=== PATIENT | male | born 1955 | race Caucasian/White ===

== ENCOUNTER → 2019-08-13 12:01 | Outpatient (CLI) | payer MEDICARE, OTHER, SELFPAY ==
[2019-08-13 12:50] LABS: Hematocrit 41.8 % (41-53); Hemoglobin 14.3 g/dL (13.5-17.5); Mean Corpuscular HGB Conc 34.2 % (30-36); Mean Corpuscular Volume 93.4 fL (80-100); Platelet Count 172 X10^3/uL (150-400); Red Blood Cell Count 4.47 X10^6/uL (4.5-5.9); Red Cell Distribution Width 12.8 % (11.6-14.8); White Blood Cell Count 6.4 X10^3/uL (4.5-11.0)
[2019-08-13 13:08] LABS: Alanine Aminotransferase 40 IU/L (21-72); Albumin 4.4 g/dL (3.5-5.0); Albumin Globulin Ratio 1.4 (1.0-2.8); Alkaline Phosphatase 81 U/L (38-126); Aspartate Aminotransferase 31 IU/L (17-59); BUN Creatinine Ratio 22.2 (6-22); Bilirubin Total 0.4 mg/dL (0.2-1.3); Blood Urea Nitrogen 20 mg/dL (9-20); Calcium 9.3 mg/dL (8.4-10.2); Carbon Dioxide 29 mmol/L (22-32); Chloride 103 mmol/L (98-107); Cholesterol 196 mg/dL (140-199); Estimated Glomerular Filt Rate > 60.0 mL/min (>60); Globulin 3.2 g/dL (1.7-4.1); Glucose 107 mg/dL (80-110); HDL Cholesterol 42 mg/dL (40-60); HEMOLYSIS < 15 (0-50); LDL Cholesterol Calculated 126 mg/dL (<100); Potassium 4.7 mmol/L (3.4-5.1); Sodium 141 mmol/L (137-145); Total Protein 7.6 g/dL (6.3-8.2); Triglycerides 140 mg/dL (35-150)
[2019-08-13 13:34] LABS: Prostate Specific Antigen 1.48 ng/mL (0.10-4.00)
== END ==
PROVIDERS: PCP Nurse Practitioner Family; Visit Provider Nurse Practitioner Family
DX: Z00.00 Encounter for general adult medical examination without abnormal findings (principal); Z12.5 Encounter for screening for malignant neoplasm of prostate; Z13.6 Encounter for screening for cardiovascular disorders
CPT/HCPCS: 36415; 80053; 80061; 84153; 85027; G0103

== ENCOUNTER → 2019-08-23 10:28 | Outpatient (CLI) | payer MEDICARE, OTHER, SELFPAY ==
[2019-08-23 11:05] LABS: Uric Acid 8.4 mg/dL (3.5-8.5)
== END ==
PROVIDERS: PCP Nurse Practitioner Family; Visit Provider Nurse Practitioner Family
DX: M62.81 Muscle weakness (generalized) (principal); R53.83 Other fatigue; M10.9 Gout, unspecified
CPT/HCPCS: 36415; 84403; 84550

== ENCOUNTER → 2019-12-06 09:38 | Outpatient (CLI) | payer MEDICARE, OTHER, SELFPAY ==
[2019-12-06 10:37] LABS: Cholesterol 157 mg/dL (140-199); HDL Cholesterol 36 mg/dL (40-60); LDL Cholesterol Calculated 91 mg/dL (<100); Triglycerides 148 mg/dL (35-150)
== END ==
PROVIDERS: PCP Nurse Practitioner Family; Visit Provider Nurse Practitioner Family
DX: E78.2 Mixed hyperlipidemia (principal)
CPT/HCPCS: 36415; 80061

== ENCOUNTER → 2020-09-19 18:09 | Outpatient (CLI) | payer MEDICARE, OTHER, SELFPAY ==
--- NOTE | 2020-09-19 18:10 | DI.MRI.S_ITS ---
PROCEDURE: MR SHOULDER RT WO CON INDICATIONS: UNSPECIFIED ROTATOR CUFF OR RUPTURE TECHNIQUE: Noncontrast oblique coronal T2 fast spin echo with fat saturation, oblique sagittal T1 spin echo and T2 fast spin echo with fat saturation, axial T1 spin echo and T2 fast spin echo with fat saturation through the shoulder. COMPARISON: None. FINDINGS: Image quality: Excellent. Rotator cuff: Full-thickness tear of the supraspinatus tendon is seen measuring 1.5 cm in the AP dimension as seen on sagittal image 8/10. This measures 1.1 cm on coronal image 11/8. Infraspinatus tendinopathy and thickening with interstitial tearing. There is also partial-thickness articular sided tear. The teres minor tendon appears intact. Subscapularis tendinopathy with partial thickness articular and bursal sided tear although no definite full-thickness defect is seen. Atrophy of the subscapularis muscle is present. There is fatty infiltration of the supraspinatus and infraspinatus muscles. Bones and bursae: No bone marrow contusions or fractures. Severe hypertrophic acromioclavicular joint degeneration. Glenohumeral joint degeneration also noted. Acromion demonstrates conventional anatomy, without an os acromiale. Capsule and soft tissues: Labrum: Fraying of the superior labrum which is likely chronic/age related. Posterior labral tear however is noted, with chronic appearance and associated glenoid rim sclerosis and spurring. Long head of the biceps tendon is not well seen and could be ruptured. The rotator interval appears normal, without fibrosis. Coracohumeral ligament intact. IMPRESSION: Full-thickness tear of the supraspinatus tendon as detailed above. Subscapularis tendinopathy with partial thickness articular and bursal sided tear. Atrophy of the subscapularis muscle. Chronic posterosuperior labral tear. Infraspinatus tendinopathy with interstitial tearing partial-thickness articular sided tear. Rupture of the long head biceps tendon, although this could alternatively be due to postsurgical effects if there is appropriate operative history. Recommend clinical correlation Degenerative joint disease. Dictated by: Hunter Lopez M.D. on 09/22/2020 at 9:39 Approved by: Hunter Lopez M.D. on 09/22/2020 at 10:03
== END ==
PROVIDERS: PCP Nurse Practitioner Family; Referring Provider Orthopaedic Surgery; Visit Provider Orthopaedic Surgery
DX: M75.121 Complete rotator cuff tear or rupture of right shoulder, not specified as traumatic (principal); M19.011 Primary osteoarthritis, right shoulder; S43.491A Other sprain of right shoulder joint, initial encounter; S46.111A Strain of muscle, fascia and tendon of long head of biceps, right arm, initial encounter
CPT/HCPCS: 73221

== ENCOUNTER → 2021-02-16 09:12 | Outpatient (CLI) | payer MEDICARE, OTHER, SELFPAY ==
[2021-02-16 09:35] LABS: Add Manual Diff / Slide Review NO; Basophils Absolute Auto 100 /uL (0-100); Basophils Percent Auto 1.4 % (0-2); Eosinophils Absolute Auto 600 /uL (0-450); Eosinophils Percent Auto 8.9 % (2-4); Hematocrit 41.6 % (41-53); Hemoglobin 13.8 g/dL (13.5-17.5); Lymphocytes Absolute Auto 2300 /uL (1100-4500); Lymphocytes Percent Auto 34.7 % (25-40); Mean Corpuscular HGB Conc 33.2 % (30-36); Mean Corpuscular Hemoglobin 30.3 PG (26-34); Mean Corpuscular Volume 91.4 fL (80-100); Monocytes Absolute Auto 700 /uL (0-900); Monocytes Percent Auto 10.2 % (3-14); Neutrophils Absolute Auto 2900 /uL (1500-7000); Neutrophils Percent Auto 44.8 % (50-75); Platelet Count 186 X10^3/uL (150-400); Red Blood Cell Count 4.55 X10^6/uL (4.5-5.9); Red Cell Distribution Width 13.5 % (11.6-14.8); White Blood Cell Count 6.6 X10^3/uL (4.5-11.0)
[2021-02-16 10:34] LABS: Alanine Aminotransferase 46 IU/L (<50); Albumin 4.2 g/dL (3.5-5.0); Albumin Globulin Ratio 1.3 (1.0-2.8); Alkaline Phosphatase 91 U/L (38-126); Aspartate Aminotransferase 36 IU/L (17-59); BUN Creatinine Ratio 20.5 (6-22); Bilirubin Total 0.2 mg/dL (0.2-1.3); Blood Urea Nitrogen 18 mg/dL (9-20); Calcium 9.6 mg/dL (8.4-10.2); Carbon Dioxide 28 mmol/L (22-32); Chloride 105 mmol/L (98-107); Cholesterol 183 mg/dL (140-199); Estimated Glomerular Filt Rate > 60.0 mL/min (>60); Globulin 3.3 g/dL (1.7-4.1); Glucose 115 mg/dL (80-110); HDL Cholesterol 40 mg/dL (40-60); HEMOLYSIS < 15 (0-50); LDL Cholesterol Calculated 113 mg/dL (<100); Potassium 4.3 mmol/L (3.4-5.1); Sodium 140 mmol/L (137-145); Total Protein 7.5 g/dL (6.3-8.2); Triglycerides 151 mg/dL (35-150)
== END ==
PROVIDERS: PCP Nurse Practitioner Family; Referring Provider Nurse Practitioner Family; Visit Provider Nurse Practitioner Family
DX: E78.2 Mixed hyperlipidemia (principal); Z00.00 Encounter for general adult medical examination without abnormal findings; J45.909 Unspecified asthma, uncomplicated
CPT/HCPCS: 36415; 80053; 80061; 85025

== ENCOUNTER → 2021-02-18 11:22 | Outpatient (CLI) | payer MEDICARE, OTHER, SELFPAY ==
[2021-02-18 14:21] LABS: Hemoglobin A1C% w Est Avg Glu 6.1 % (4.0-6.0)
== END ==
PROVIDERS: PCP Nurse Practitioner Family; Visit Provider Nurse Practitioner Family
DX: R73.9 Hyperglycemia, unspecified (principal)
CPT/HCPCS: 83036

== ENCOUNTER → 2021-03-10 09:09 | Outpatient (CLI) | payer MEDICARE, OTHER, SELFPAY ==
--- NOTE | 2021-03-10 09:11 | DI.US.S_ITS ---
PROCEDURE: US ABD AORTA ANEURYSM SCREEN INDICATIONS: SCREEN. Smoking history. TECHNIQUE: Real time scanning was performed of the aorta and iliac arteries, with image documentation. COMPARISON: [facility], , ABDOMEN COMPLETE, 10/26/2010, 13:08. FINDINGS: Aorta: Proximal aorta is not seen. Mid-aorta measures 2 cm. Distal aortic diameter is 1.7 cm. Iliac arteries: Right common iliac artery measures 1.2 cm. Left common iliac artery measures 1.2 cm. This study is limited by body habitus. IMPRESSION: Negative for aneurysm. Dictated by: Josh Arriola M.D. on 03/10/2021 at 8:57 Approved by: Josh Arriola M.D. on 03/10/2021 at 8:58
== END ==
PROVIDERS: PCP Nurse Practitioner Family; Referring Provider Nurse Practitioner Family; Visit Provider Nurse Practitioner Family
DX: Z13.6 Encounter for screening for cardiovascular disorders (principal); Z87.891 Personal history of nicotine dependence
CPT/HCPCS: 76706

== ENCOUNTER → 2021-10-10 15:48 | Outpatient (CLI) | payer MEDICARE, OTHER, SELFPAY ==
--- NOTE | 2021-10-10 15:53 | DI.RAD.S_ITS ---
PROCEDURE: XR FOOT RT MIN 3V INDICATIONS: foot and ankle pain TECHNIQUE: 3 views of the foot were acquired. COMPARISON: [facility], CR, XR ANKLE RT MIN 3V, 10/10/2021, 15:49. FINDINGS: Bones: No displaced fracture identified. The 2nd tarsometatarsal joint appears mildly incongruent although evaluation is limited by projection. There is mild cortical thickening within the 2nd through 4th metatarsals which may reflect a possible stress reaction. Mild degeneration is demonstrated at the 1st tarsometatarsal and metatarsophalangeal joints. There is also mild degeneration of the interphalangeal joints. Soft tissues: No suspicious soft tissue calcifications. IMPRESSION: 1. Mildly incongruent appearance of the 2nd tarsometatarsal joint. Although the findings may be artifactual due to the projection, a Lisfranc fracture/dislocation cannot be excluded. Recommend correlation clinically and if indicated further evaluation may be obtained with CT. 2. Mild degenerative changes in the forefoot as described. 3. Mild cortical thickening within the 2nd through 4th metatarsals may reflect stress reactions. Recommend correlation with clinical history. Dictated by: Kaveh Adrian M.D. on 10/10/2021 at 15:45 Approved by: Kaveh Adrian M.D. on 10/10/2021 at 15:50
--- NOTE | 2021-10-10 15:53 | DI.RAD.S_ITS ---
PROCEDURE: XR ANKLE RT MIN 3V INDICATIONS: foot and ankle pain TECHNIQUE: 3 views of the ankle were acquired. COMPARISON: [facility], CR, XR FOOT RT MIN 3V, 10/10/2021, 15:49. FINDINGS: Bones: No fractures or dislocations. Ankle mortise is normally aligned. No suspicious bony lesions. Soft tissues: No tibiotalar joint effusion. Achilles tendon appears normal. IMPRESSION: 1. No fracture or dislocation in the right ankle. Dictated by: Kaveh Adrian M.D. on 10/10/2021 at 15:51 Approved by: Kaveh Adrian M.D. on 10/10/2021 at 15:52
== END ==
PROVIDERS: PCP Nurse Practitioner Family; Referring Provider Nurse Practitioner Family; Visit Provider Nurse Practitioner Family
DX: M25.571 Pain in right ankle and joints of right foot (principal); M79.671 Pain in right foot
CPT/HCPCS: 73610; 73630

== ENCOUNTER 2022-09-13 12:38 | Emergency (ER) | payer MEDICARE, OTHER, SELFPAY ==
[2022-09-13] VITALS (49 sets, daily range): BP systolic 123–174; BP diastolic 52–85; PULSE 62–78; RESP 4–27; TEMP 36.7; O2SAT 94–99; BMI 38.0
--- NOTE | 2022-09-13 12:47 | DI.RAD.S_ITS ---
PROCEDURE: XR CHEST 1V INDICATIONS: chest pain TECHNIQUE: One view of the chest was acquired. COMPARISON: [facility], , CHEST 2 VIEW, 10/25/2011, 17:23. FINDINGS: Surgical changes and devices: None. Lungs and pleura: Lungs are clear. No pleural effusions or pneumothorax. Mediastinum: Mediastinal contours appear normal. Heart size is normal. Bones and chest wall: No suspicious bony lesions. Overlying soft tissues appear unremarkable. IMPRESSION: No acute process. Dictated by: Emelia Corral M.D. on 09/13/2022 at 13:23 Approved by: Emelia Corral M.D. on 09/13/2022 at 13:23
--- NOTE | 2022-09-13 12:57 | ED_ITS ---
HPI - General Adult <Abner Brunson DO - Last Filed: 09/15/22 19:19> General Chief complaint: Chest Pain Stated complaint: chest pain t- getting worse Time Seen by Provider: 09/13/22 12:45 Source: patient Mode of arrival: Ambulatory Limitations: no limitations History of Present Illness HPI narrative: 67-year-old male who is here for evaluation of left-sided chest discomfort that he stated occurred earlier today. He has had discomfort like this in the past but has been off and on and never lasted very long. Today you returned while he was working on getting a boat on a trailer. He had some shortness of breath with it. Not worse with palpation or movement. No nausea vomiting. Described it as a pain/pressure like sensation. He is now asymptomatic. Did not tried anything for it. Has never had any risk stratification of his heart. Has been told that he is ?prediabetic? is not on any blood pressure medicines. Related Data Home Medications Medication Instructions Recorded Confirmed montelukast 10 mg tablet 10 mg PO DAILY 08/09/19 09/13/22 (Singulair) Allergies Allergy/AdvReac Type Severity Reaction Status Date / Time pravastatin AdvReac Intermediate myalgia Verified 09/15/22 15:03 Review of Systems <Abner Brunson DO - Last Filed: 09/15/22 19:19> Constitutional Constitutional: Reports system reviewed and no additional complaints, except as documented Cardiovascular Cardiovascular: Reports system reviewed and no additional complaints, except as documented Respiratory Respiratory: Reports system reviewed and no additional complaints, except as documented Gastrointestinal Gastrointestinal: Reports system reviewed and no additional complaints, except as documented Musculoskeletal Musculoskeletal: Reports system reviewed and no additional complaints, except as documented Integumentary/Breasts Skin/Breast: Reports system reviewed and no additional complaints, except as documented Neurologic Neurologic: Reports system reviewed and no additional complaints, except as documented Hematologic/Lymphatic On Anticoagulants: No Patient History <Abner Brunson DO - Last Filed: 09/15/22 19:19> Medical History Asthma (~2011) Former smoker Gout (~1979) Mixed hyperlipidemia (08/2019) Prediabetes (02/2021) Surgical History (Updated 08/20/19 @ 21:04 by Celia Angel) Anesthesia History of sinus surgery (~11/22/13) Family History (Updated 08/20/19 @ 21:05 by Celia Angel) Father History of heart disease Mother Cancer Social History Smoking Status: Former smoker (Quit ) Tobacco: How many years used: 20 second hand exposure: No alcohol intake: current (1-2 drinks a week) substance use type: does not use Smoking Status: Former smoker (Quit ) Exam <DO Nohemi Farah Last Filed: 09/15/22 19:19> Initial Vital Signs Initial Vital Signs: Vital Signs Temperature 98.0 F 09/13/22 12:45 Pulse Rate 78 09/13/22 12:45 Respiratory Rate 18 09/13/22 12:45 Blood Pressure 173/81 H 09/13/22 12:45 Pulse Oximetry 99 09/13/22 12:45 Oxygen Delivery Method 09/13/22 12:45 Const General: cooperative and comfortable HENMT Head: normal to inspection and normocephalic Chest Chest: normal inspection of the chest Resp Effort & Inspection: normal respiratory effort Auscultation: clear to auscultation bilaterally Cardio Rate: regular rate Rhythm: regular rhythm GI Inspection: normal to inspection Skin General: no rashes or lesions noted Neuro General: patient alert, patient awake and moves all extremities Extrem General: normal to inspection Psych Appearance: grossly normal <DO Nohemi Armenta Last Filed: 09/16/22 02:39> Initial Vital Signs Initial Vital Signs: Vital Signs Temperature 98.0 F 09/13/22 12:45 Pulse Rate 78 09/13/22 12:45 Respiratory Rate 18 09/13/22 12:45 Blood Pressure 173/81 H 09/13/22 12:45 Pulse Oximetry 99 09/13/22 12:45 Oxygen Delivery Method 09/13/22 12:45 Scores <DO Nohemi Farah Last Filed: 09/15/22 19:19> HEART Score Heart Score history: Slightly Suspicious Heart Score EKG: Normal Heart Score Age: > or = 65 years old Heart Score risk factors: 1-2 risk factors Heart Score troponin: < or = to normal limit Heart Score Total: 3 <DO Nohemi Armenta Last Filed: 09/16/22 02:39> HEART Score Heart Score Total: 3 Course <Abner Brunson DO - Last Filed: 09/15/22 19:19> Orders Ordered: Discontinued Medications Acetaminophen (Acetaminophen 325 Mg Tablet) 650 mg PO NOW ONE Stop: 09/15/22 17:29 Last Admin: 09/15/22 18:03 Dose: 650 mg Documented By: QUINTEN Acetaminophen (Acetaminophen 325 Mg Tablet) 650 mg PO NOW ONE Stop: 09/15/22 23:02 Last Admin: 09/15/22 23:04 Dose: 650 mg Documented By: ISABELA Aspirin (Aspirin 81 Mg Chew Tab) 324 mg PO NOW ONE Stop: 09/13/22 16:43 Last Admin: 09/13/22 17:17 Dose: 324 mg Documented By: SANTO Aspirin (Aspirin 81 Mg Chew Tab) 324 mg PO DAILY [facility] Last Admin: 09/15/22 08:40 Dose: 324 mg Documented By: Admin: 09/14/22 08:53 Dose: 324 mg Documented By: QUINTEN Atorvastatin Calcium (Atorvastatin 20 Mg Tablet) 80 mg PO DAILY [facility] Last Admin: 09/15/22 08:55 Dose: Not Given Documented By: Admin: 09/14/22 08:54 Dose: 80 mg Documented By: QUINTEN Heparin Sodium (Porcine) (Heparin 5,000 Unit/Ml Vial) 5,000 unit IV NOW ONE Stop: 09/13/22 16:43 Last Admin: 09/13/22 17:22 Dose: 5,000 unit Documented By: SANTO Heparin Sodium (Porcine) (Heparin 5,000 Unit/Ml Vial) 3,000 unit IV NOW ONE Stop: 09/14/22 00:07 Last Admin: 09/14/22 00:09 Dose: 3,000 unit Documented By: QUINTEN(2) Heparin Sodium/Dextrose (Heparin Drip) 25,000 unit in 500 mls @ 20 mls/hr IV CONT [facility]; Protocol Last Admin: 09/15/22 12:46 Dose: 1,250 units/hr, 25 mls/hr Documented By: Titration: 09/15/22 12:32 Dose: 1,250 units/hr, 25 mls/hr Documented By: Titration: 09/14/22 18:54 Dose: 1,250 units/hr, 25 mls/hr Documented By: Admin: 09/14/22 16:26 Dose: 1,200 units/hr, 24 mls/hr Documented By: Titration: 09/14/22 12:00 Dose: 1,200 units/hr, 24 mls/hr Documented By: Titration: 09/14/22 07:03 Dose: 1,150 units/hr, 23 mls/hr Documented By: QUINTEN(2) Titration: 09/14/22 00:10 Dose: 1,100 units/hr, 22 mls/hr Documented By: QUINTEN(2) Admin: 09/13/22 17:19 Dose: 1,000 units/hr, 20 mls/hr Documented By: SANTO Metoprolol Succinate (Metoprolol Er 25 Mg Tablet) 25 mg PO NOW ONE Stop: 09/13/22 20:40 Last Admin: 09/13/22 21:33 Dose: 25 mg Documented By: QUINTEN(2) Metoprolol Succinate (Metoprolol Er 25 Mg Tablet) 25 mg PO BID [facility] Last Admin: 09/15/22 11:08 Dose: Not Given Documented By: MARI Metoprolol Tartrate (Metoprolol Ir 25 Mg Tablet) 25 mg PO BID [facility] Last Admin: 09/15/22 20:48 Dose: 25 mg Documented By: Admin: 09/15/22 10:41 Dose: 25 mg Documented By: QUINTEN Vital Signs Vital signs: Vital Signs - 8 hr 09/15/22 18:40 09/15/22 18:40 09/15/22 19:00 Pulse Rate 81 81 Blood Pressure 134/68 Pulse Oximetry 96 09/15/22 19:30 09/15/22 20:00 09/15/22 20:09 Pulse Rate 88 88 82 Blood Pressure Pulse Oximetry 95 09/15/22 20:09 09/15/22 20:30 09/15/22 21:02 Pulse Rate 81 103 H Blood Pressure 120/62 Pulse Oximetry 09/15/22 21:30 09/15/22 22:00 09/15/22 22:30 Pulse Rate 133 H 83 75 Blood Pressure Pulse Oximetry <Ellen Pittman DO - Last Filed: 09/16/22 02:39> Orders Ordered: Discontinued Medications Acetaminophen (Acetaminophen 325 Mg Tablet) 650 mg PO NOW ONE Stop: 09/15/22 17:29 Last Admin: 09/15/22 18:03 Dose: 650 mg Documented By: QUINTEN Acetaminophen (Acetaminophen 325 Mg Tablet) 650 mg PO NOW ONE Stop: 09/15/22 23:02 Last Admin: 09/15/22 23:04 Dose: 650 mg Documented By: ISABELA Aspirin (Aspirin 81 Mg Chew Tab) 324 mg PO NOW ONE Stop: 09/13/22 16:43 Last Admin: 09/13/22 17:17 Dose: 324 mg Documented By: SANTO Aspirin (Aspirin 81 Mg Chew Tab) 324 mg PO DAILY [facility] Last Admin: 09/15/22 08:40 Dose: 324 mg Documented By: Admin: 09/14/22 08:53 Dose: 324 mg Documented By: QUINTEN Atorvastatin Calcium (Atorvastatin 20 Mg Tablet) 80 mg PO DAILY [facility] Last Admin: 09/15/22 08:55 Dose: Not Given Documented By: Admin: 09/14/22 08:54 Dose: 80 mg Documented By: QUINTEN Heparin Sodium (Porcine) (Heparin 5,000 Unit/Ml Vial) 5,000 unit IV NOW ONE Stop: 09/13/22 16:43 Last Admin: 09/13/22 17:22 Dose: 5,000 unit Documented By: SANTO Heparin Sodium (Porcine) (Heparin 5,000 Unit/Ml Vial) 3,000 unit IV NOW ONE Stop: 09/14/22 00:07 Last Admin: 09/14/22 00:09 Dose: 3,000 unit Documented By: RLS(2) Heparin Sodium/Dextrose (Heparin Drip) 25,000 unit in 500 mls @ 20 mls/hr IV CONT [facility]; Protocol Last Admin: 09/15/22 12:46 Dose: 1,250 units/hr, 25 mls/hr Documented By: Titration: 09/15/22 12:32 Dose: 1,250 units/hr, 25 mls/hr Documented By: Titration: 09/14/22 18:54 Dose: 1,250 units/hr, 25 mls/hr Documented By: Admin: 09/14/22 16:26 Dose: 1,200 units/hr, 24 mls/hr Documented By: Titration: 09/14/22 12:00 Dose: 1,200 units/hr, 24 mls/hr Documented By: Titration: 09/14/22 07:03 Dose: 1,150 units/hr, 23 mls/hr Documented By: RLS(2) Titration: 09/14/22 00:10 Dose: 1,100 units/hr, 22 mls/hr Documented By: RLS(2) Admin: 09/13/22 17:19 Dose: 1,000 units/hr, 20 mls/hr Documented By: SANTO Metoprolol Succinate (Metoprolol Er 25 Mg Tablet) 25 mg PO NOW ONE Stop: 09/13/22 20:40 Last Admin: 09/13/22 21:33 Dose: 25 mg Documented By: QUINTEN(2) Metoprolol Succinate (Metoprolol Er 25 Mg Tablet) 25 mg PO BID [facility] Last Admin: 09/15/22 11:08 Dose: Not Given Documented By: MARI Metoprolol Tartrate (Metoprolol Ir 25 Mg Tablet) 25 mg PO BID [facility] Last Admin: 09/15/22 20:48 Dose: 25 mg Documented By: Admin: 09/15/22 10:41 Dose: 25 mg Documented By: QUINTEN Vital Signs Vital signs: Vital Signs - 8 hr 09/15/22 18:40 09/15/22 18:40 09/15/22 19:00 Pulse Rate 81 81 Blood Pressure 134/68 Pulse Oximetry 96 09/15/22 19:30 09/15/22 20:00 09/15/22 20:09 Pulse Rate 88 88 82 Blood Pressure Pulse Oximetry 95 09/15/22 20:09 09/15/22 20:30 09/15/22 21:02 Pulse Rate 81 103 H Blood Pressure 120/62 Pulse Oximetry 09/15/22 21:30 09/15/22 22:00 09/15/22 22:30 Pulse Rate 133 H 83 75 Blood Pressure Pulse Oximetry Medical Decision Making <Abner Brunson DO - Last Filed: 09/15/22 19:19> Lab Data Lab results reviewed: Yes I reviewed the patient's lab results. Result diagrams: 09/15/22 08:27 09/15/22 08:27 Labs: Lab Results 09/13/22 09/13/22 09/13/22 Range/Units 12:55 12:55 12:55 WBC 5.5 (4.5-11.0) X10^3/uL RBC 4.32 L (4.5-5.9) X10^6/uL Hgb 13.2 L (13.5-17.5) g/dL Hct 39.1 L (41-53) % MCV 90.5 (80-100) fL MCH 30.5 (26-34) PG MCHC 33.7 (30-36) % RDW 13.8 (11.6-14.8) % Plt Count 176 (150-400) X10^3/uL Neut % (Auto) 46.7 L (50-75) % Lymph % (Auto) 38.2 (25-40) % Leake % (Auto) 9.3 (3-14) % Eos % (Auto) 4.7 H (2-4) % Baso % (Auto) 1.1 (0-2) % Neut # (Auto) 2600 (2424-7878) /uL Lymph # (Auto) 2100 (0215-2870) /uL Leake # (Auto) 500 (0-900) /uL Eos # (Auto) 300 (0-450) /uL Baso # (Auto) 100 (0-100) /uL PT 11.7 (10.1-12.7) SECONDS INR 1.0 (0.9-1.3) APTT 32 (26-36) SECONDS Sodium 141 (137-145) mmol/L Potassium 3.9 (3.4-5.1) mmol/L Chloride 103 (98-107) mmol/L Carbon Dioxide 28 (22-32) mmol/L BUN 19 (9-20) mg/dL Creatinine 0.92 (0.66-1.25) mg/dL Estimated GFR > 60 (>60) mL/min BUN/Creatinine Ratio 20.7 (6-22) Glucose 171 H (80-110) mg/dL Uric Acid (3.5-8.5) mg/dL Calcium 8.8 (8.4-10.2) mg/dL Magnesium 1.8 (1.6-2.3) mg/dL Total Bilirubin 0.3 (0.2-1.3) mg/dL AST 25 (17-59) IU/L ALT 32 (<50) IU/L Alkaline Phosphatase 81 (38-126) U/L Total Creatine Kinase 118 (55-170) U/L CK-MB (CK-2) 1.97 (<2.37) ng/mL CK-MB (CK-2) Rel Index 1.7 (1.5-5.0) % Troponin I 0.033 (0.01-0.034) ng/mL Total Protein 7.5 (6.3-8.2) g/dL Albumin 4.1 (3.5-5.0) g/dL Globulin 3.4 (1.7-4.1) g/dL Albumin/Globulin Ratio 1.2 (1.0-2.8) Lipase 160 (23-300) U/L SARS-CoV-2 (PCR) (Negative) 09/13/22 09/13/22 09/13/22 Range/Units 13:20 15:15 19:00 WBC (4.5-11.0) X10^3/uL RBC (4.5-5.9) X10^6/uL Hgb (13.5-17.5) g/dL Hct (41-53) % MCV (80-100) fL MCH (26-34) PG MCHC (30-36) % RDW (11.6-14.8) % Plt Count (150-400) X10^3/uL Neut % (Auto) (50-75) % Lymph % (Auto) (25-40) % Leake % (Auto) (3-14) % Eos % (Auto) (2-4) % Baso % (Auto) (0-2) % Neut # (Auto) (3746-2698) /uL Lymph # (Auto) (0491-7899) /uL Leake # (Auto) (0-900) /uL Eos # (Auto) (0-450) /uL Baso # (Auto) (0-100) /uL PT (10.1-12.7) SECONDS INR (0.9-1.3) APTT (26-36) SECONDS Sodium (137-145) mmol/L Potassium (3.4-5.1) mmol/L Chloride (98-107) mmol/L Carbon Dioxide (22-32) mmol/L BUN (9-20) mg/dL Creatinine (0.66-1.25) mg/dL Estimated GFR (>60) mL/min BUN/Creatinine Ratio (6-22) Glucose (80-110) mg/dL Uric Acid (3.5-8.5) mg/dL Calcium (8.4-10.2) mg/dL Magnesium (1.6-2.3) mg/dL Total Bilirubin (0.2-1.3) mg/dL AST (17-59) IU/L ALT (<50) IU/L Alkaline Phosphatase (38-126) U/L Total Creatine Kinase 107 (55-170) U/L CK-MB (CK-2) 2.02 (<2.37) ng/mL CK-MB (CK-2) Rel Index 1.9 (1.5-5.0) % Troponin I 0.081 H 0.099 H (0.01-0.034) ng/mL Total Protein (6.3-8.2) g/dL Albumin (3.5-5.0) g/dL Globulin (1.7-4.1) g/dL Albumin/Globulin Ratio (1.0-2.8) Lipase (23-300) U/L SARS-CoV-2 (PCR) Negative (Negative) 09/13/22 09/13/22 09/14/22 Range/Units 23:35 23:35 06:04 WBC (4.5-11.0) X10^3/uL RBC (4.5-5.9) X10^6/uL Hgb (13.5-17.5) g/dL Hct (41-53) % MCV (80-100) fL MCH (26-34) PG MCHC (30-36) % RDW (11.6-14.8) % Plt Count (150-400) X10^3/uL Neut % (Auto) (50-75) % Lymph % (Auto) (25-40) % Leake % (Auto) (3-14) % Eos % (Auto) (2-4) % Baso % (Auto) (0-2) % Neut # (Auto) (8421-9987) /uL Lymph # (Auto) (2504-2015) /uL Leake # (Auto) (0-900) /uL Eos # (Auto) (0-450) /uL Baso # (Auto) (0-100) /uL PT (10.1-12.7) SECONDS INR (0.9-1.3) APTT 33 46 H D (26-36) SECONDS Sodium (137-145) mmol/L Potassium (3.4-5.1) mmol/L Chloride (98-107) mmol/L Carbon Dioxide (22-32) mmol/L BUN (9-20) mg/dL Creatinine (0.66-1.25) mg/dL Estimated GFR (>60) mL/min BUN/Creatinine Ratio (6-22) Glucose (80-110) mg/dL Uric Acid (3.5-8.5) mg/dL Calcium (8.4-10.2) mg/dL Magnesium (1.6-2.3) mg/dL Total Bilirubin (0.2-1.3) mg/dL AST (17-59) IU/L ALT (<50) IU/L Alkaline Phosphatase (38-126) U/L Total Creatine Kinase (55-170) U/L CK-MB (CK-2) (<2.37) ng/mL CK-MB (CK-2) Rel Index (1.5-5.0) % Troponin I 0.088 H (0.01-0.034) ng/mL Total Protein (6.3-8.2) g/dL Albumin (3.5-5.0) g/dL Globulin (1.7-4.1) g/dL Albumin/Globulin Ratio (1.0-2.8) Lipase (23-300) U/L SARS-CoV-2 (PCR) (Negative) 09/14/22 09/14/22 09/14/22 Range/Units 12:00 12:00 13:15 WBC 6.7 (4.5-11.0) X10^3/uL RBC 4.41 L (4.5-5.9) X10^6/uL Hgb 13.4 L (13.5-17.5) g/dL Hct 40.0 L (41-53) % MCV 90.8 (80-100) fL MCH 30.5 (26-34) PG MCHC 33.6 (30-36) % RDW 13.8 (11.6-14.8) % Plt Count 203 (150-400) X10^3/uL Neut % (Auto) 59.1 (50-75) % Lymph % (Auto) 27.3 (25-40) % Leake % (Auto) 9.2 (3-14) % Eos % (Auto) 2.7 (2-4) % Baso % (Auto) 1.7 (0-2) % Neut # (Auto) 3900 (5418-1391) /uL Lymph # (Auto) 1800 (0236-3932) /uL Leake # (Auto) 600 (0-900) /uL Eos # (Auto) 200 (0-450) /uL Baso # (Auto) 100 (0-100) /uL PT (10.1-12.7) SECONDS INR (0.9-1.3) APTT 41 H (26-36) SECONDS Sodium 139 (137-145) mmol/L Potassium 4.1 (3.4-5.1) mmol/L Chloride 104 (98-107) mmol/L Carbon Dioxide 25 (22-32) mmol/L BUN 13 (9-20) mg/dL Creatinine 0.85 (0.66-1.25) mg/dL Estimated GFR > 60 (>60) mL/min BUN/Creatinine Ratio 15.3 (6-22) Glucose 123 H (80-110) mg/dL Uric Acid (3.5-8.5) mg/dL Calcium 9.2 (8.4-10.2) mg/dL Magnesium (1.6-2.3) mg/dL Total Bilirubin 0.4 (0.2-1.3) mg/dL AST 29 (17-59) IU/L ALT 33 (<50) IU/L Alkaline Phosphatase 67 (38-126) U/L Total Creatine Kinase 205 H (55-170) U/L CK-MB (CK-2) 2.55 H (<2.37) ng/mL CK-MB (CK-2) Rel Index 1.2 L (1.5-5.0) % Troponin I 0.046 H (0.01-0.034) ng/mL Total Protein 7.7 (6.3-8.2) g/dL Albumin 4.2 (3.5-5.0) g/dL Globulin 3.5 (1.7-4.1) g/dL Albumin/Globulin Ratio 1.2 (1.0-2.8) Lipase (23-300) U/L SARS-CoV-2 (PCR) (Negative) 09/14/22 09/15/22 09/15/22 Range/Units 18:10 01:05 07:00 WBC (4.5-11.0) X10^3/uL RBC (4.5-5.9) X10^6/uL Hgb (13.5-17.5) g/dL Hct (41-53) % MCV (80-100) fL MCH (26-34) PG MCHC (30-36) % RDW (11.6-14.8) % Plt Count (150-400) X10^3/uL Neut % (Auto) (50-75) % Lymph % (Auto) (25-40) % Leake % (Auto) (3-14) % Eos % (Auto) (2-4) % Baso % (Auto) (0-2) % Neut # (Auto) (5872-0501) /uL Lymph # (Auto) (4398-4249) /uL Leake # (Auto) (0-900) /uL Eos # (Auto) (0-450) /uL Baso # (Auto) (0-100) /uL PT (10.1-12.7) SECONDS INR (0.9-1.3) APTT 37 H 48 H D 53 H (26-36) SECONDS Sodium (137-145) mmol/L Potassium (3.4-5.1) mmol/L Chloride (98-107) mmol/L Carbon Dioxide (22-32) mmol/L BUN (9-20) mg/dL Creatinine (0.66-1.25) mg/dL Estimated GFR (>60) mL/min BUN/Creatinine Ratio (6-22) Glucose (80-110) mg/dL Uric Acid (3.5-8.5) mg/dL Calcium (8.4-10.2) mg/dL Magnesium (1.6-2.3) mg/dL Total Bilirubin (0.2-1.3) mg/dL AST (17-59) IU/L ALT (<50) IU/L Alkaline Phosphatase (38-126) U/L Total Creatine Kinase (55-170) U/L CK-MB (CK-2) (<2.37) ng/mL CK-MB (CK-2) Rel Index (1.5-5.0) % Troponin I (0.01-0.034) ng/mL Total Protein (6.3-8.2) g/dL Albumin (3.5-5.0) g/dL Globulin (1.7-4.1) g/dL Albumin/Globulin Ratio (1.0-2.8) Lipase (23-300) U/L SARS-CoV-2 (PCR) (Negative) 09/15/22 09/15/22 09/15/22 Range/Units 08:27 08:27 08:27 WBC 11.2 H D (4.5-11.0) X10^3/uL RBC 4.56 (4.5-5.9) X10^6/uL Hgb 13.8 (13.5-17.5) g/dL Hct 41.2 (41-53) % MCV 90.3 (80-100) fL MCH 30.2 (26-34) PG MCHC 33.4 (30-36) % RDW 13.9 (11.6-14.8) % Plt Count 200 (150-400) X10^3/uL Neut % (Auto) 71.7 (50-75) % Lymph % (Auto) 19.1 L (25-40) % Leake % (Auto) 6.1 (3-14) % Eos % (Auto) 2.0 (2-4) % Baso % (Auto) 1.1 (0-2) % Neut # (Auto) 8100 H (1245-2453) /uL Lymph # (Auto) 2100 (3480-5814) /uL Leake # (Auto) 700 (0-900) /uL Eos # (Auto) 200 (0-450) /uL Baso # (Auto) 100 (0-100) /uL PT (10.1-12.7) SECONDS INR (0.9-1.3) APTT (26-36) SECONDS Sodium 139 (137-145) mmol/L Potassium 4.0 (3.4-5.1) mmol/L Chloride 103 (98-107) mmol/L Carbon Dioxide 24 (22-32) mmol/L BUN 16 (9-20) mg/dL Creatinine 0.99 (0.66-1.25) mg/dL Estimated GFR > 60 (>60) mL/min BUN/Creatinine Ratio 16.2 (6-22) Glucose 149 H (80-110) mg/dL Uric Acid (3.5-8.5) mg/dL Calcium 9.2 (8.4-10.2) mg/dL Magnesium (1.6-2.3) mg/dL Total Bilirubin (0.2-1.3) mg/dL AST (17-59) IU/L ALT (<50) IU/L Alkaline Phosphatase (38-126) U/L Total Creatine Kinase (55-170) U/L CK-MB (CK-2) (<2.37) ng/mL CK-MB (CK-2) Rel Index (1.5-5.0) % Troponin I 0.031 (0.01-0.034) ng/mL Total Protein (6.3-8.2) g/dL Albumin (3.5-5.0) g/dL Globulin (1.7-4.1) g/dL Albumin/Globulin Ratio (1.0-2.8) Lipase (23-300) U/L SARS-CoV-2 (PCR) (Negative) 09/15/22 Range/Units 08:27 WBC (4.5-11.0) X10^3/uL RBC (4.5-5.9) X10^6/uL Hgb (13.5-17.5) g/dL Hct (41-53) % MCV (80-100) fL MCH (26-34) PG MCHC (30-36) % RDW (11.6-14.8) % Plt Count (150-400) X10^3/uL Neut % (Auto) (50-75) % Lymph % (Auto) (25-40) % Leake % (Auto) (3-14) % Eos % (Auto) (2-4) % Baso % (Auto) (0-2) % Neut # (Auto) (0184-7406) /uL Lymph # (Auto) (8014-0150) /uL Leake # (Auto) (0-900) /uL Eos # (Auto) (0-450) /uL Baso # (Auto) (0-100) /uL PT (10.1-12.7) SECONDS INR (0.9-1.3) APTT (26-36) SECONDS Sodium (137-145) mmol/L Potassium (3.4-5.1) mmol/L Chloride (98-107) mmol/L Carbon Dioxide (22-32) mmol/L BUN (9-20) mg/dL Creatinine (0.66-1.25) mg/dL Estimated GFR (>60) mL/min BUN/Creatinine Ratio (6-22) Glucose (80-110) mg/dL Uric Acid 10.2 H (3.5-8.5) mg/dL Calcium (8.4-10.2) mg/dL Magnesium (1.6-2.3) mg/dL Total Bilirubin (0.2-1.3) mg/dL AST (17-59) IU/L ALT (<50) IU/L Alkaline Phosphatase (38-126) U/L Total Creatine Kinase (55-170) U/L CK-MB (CK-2) (<2.37) ng/mL CK-MB (CK-2) Rel Index (1.5-5.0) % Troponin I (0.01-0.034) ng/mL Total Protein (6.3-8.2) g/dL Albumin (3.5-5.0) g/dL Globulin (1.7-4.1) g/dL Albumin/Globulin Ratio (1.0-2.8) Lipase (23-300) U/L SARS-CoV-2 (PCR) (Negative) Imaging Data Chest x-ray: Radiologist's Impression: [address] [address] XRay Report Signed Patient: Pawel Bautista MR#: [id number] : 1955 Acct:[id number] Age/Sex: 67 / M Date of Service: 09/13/22 Loc: ED Accession Number: [id number] ?? Procedure: XR chest 1V Ordering Provider: Abner Brunson D.O. PROCEDURE:? XR CHEST 1V ? INDICATIONS:? chest pain ? TECHNIQUE:? One view of the chest was acquired.? ? COMPARISON:? , CHEST 2 VIEW, 10/25/2011, 17:23. ? FINDINGS:? ? Surgical changes and devices:? None.? ? Lungs and pleura:? Lungs are clear.? No pleural effusions or pneumothorax.? ? Mediastinum:? Mediastinal contours appear normal.? Heart size is normal.? ? Bones and chest wall:? No suspicious bony lesions.? Overlying soft tissues appear unremarkable.? ? IMPRESSION:? No acute process. ? ? Dictated by: Emelia Corral M.D. on 09/13/2022 at 13:23 ? ? Approved by: Emelia Corral M.D. on 09/13/2022 at 13:23?? echo: Radiologist's Impression: [address] [address] Echocardiography Report Signed Patient: Pawel Bautista MR#: [id number] : 1955 Acct:[id number] Age/Sex: 67 / M Date of Service: 09/13/22 Loc: ED Accession Number: [id number] ?? Procedure: EC echo doppler complete Ordering Provider: Abner Brunson D.O. ? [facility]---------+? [facility]? +---------+ : ? :? [address] [place] [address] ? : ? : : ? :? [place], [place] ? : ? : : ? :? [id number] ? : ? : : ? : ? Phone: [phone] : ? : [phone]? [phone]? +---------+ ? Echocardiogram Report + + :Name: PAWEL BAUTISTA ? Study Date: 09/14/2022 ? Height: 68 in? : :[facility] ? ? ReadingLocation: ? Weight: 250 lb : : ? Gender: Male ? BSA: 2.2 m2? ? : :: 1955? Age: 67 yrs? BP: 136/63 mmHg: :Reason For Study: NSTEMI ? : :Ordering Physician: RUTHY,? : :ABNER? Performed By: Latanya Barcenas? : :Referring: ABNER BRUNSON ? : + + Interpretation Summary The left ventricle is normal in size and wall thickness. Left ventricular systolic function is borderline reduced. The ejection fraction is estimated to be 45-50%. Images are suboptimal but there is possible hypokinesis along the inferolateral segments. Diastolic parameters suggest a relaxation abnormality of the left ventricle, consistent with probable normal filling pressures. ? The right ventricle is normal in size and function. ? The left atrial size is normal. Right atrial size is normal. ? There is mild to moderate aortic stenosis. The peak aortic velocity is 2.5 m/sec. The calculated aortic valve area is 1.4 cm2. There is mild to moderate aortic regurgitation. There is moderate aortic valve sclerosis. There is no other significant valvular heart disease. ? The aortic root is normal size. ? Procedure: ? A two-dimensional transthoracic echocardiogram with color flow and Doppler was performed. The study quality was technically difficult. There is no prior echocardiogram noted for this patient. A contrast injection of Definity was performed to improve assessment of LV function. Contrast was injected into an intravenous site in the right arm. A total of 3 cc of contrast was given. EKG artificat throughout. The patient was in sinus rhythm with heart rates between 60-88 bpm during the exam. Left Ventricle: ? The left ventricle is normal in size and wall thickness. Left ventricular systolic function is borderline reduced. The ejection fraction is estimated to be 45-50%. Images are suboptimal but there is possible hypokinesis along the inferolateral segments. Diastolic parameters suggest a relaxation abnormality of the left ventricle, consistent with probable normal filling pressures. Right Ventricle: ? The right ventricle is normal in size and function. Atria: ? The left atrial size is normal. Right atrial size is normal. There is no Doppler evidence for an interatrial shunt. Mitral Valve: ? The mitral valve is normal in structure and function. There is mild mitral annular calcification. There is trace mitral regurgitation. Aortic Valve: ? The aortic valve is not well visualized. There is moderate aortic valve sclerosis. There is mild to moderate aortic stenosis. The peak aortic velocity is 2.5 m/sec. The aortic valve mean gradient is 13 mmHg. The calculated aortic valve area is 1.4 cm2. There is mild to moderate aortic regurgitation. Tricuspid Valve: ? The tricuspid valve is normal in structure and function. There is mild tricuspid regurgitation. Pulmonic Valve: ? The pulmonic valve is not well visualized. There is no other significant valvular heart disease. Great Vessels: ? The aortic root is normal size. The ascending aorta is at the upper limits of normal in size. The inferior vena cava was not well visualized. Pericardium/ Pleura ? There is no pericardial effusion. There is no pleural effusion. ? MMode/2D Measurements & Calculations LVIDd: 4.6 cm? LVOT diam: 2.4 cm LVIDs: 3.6 cm? Ao root diam: 3.7 cm FS: 21.8 % ? Ao Arch Diam (Prox Trans): 2.5 cm EPSS: 1.5 cm IVSd: 0.96 cm LVPWd: 1.0 cm LV nunez. diameter/BSA (cm/m^2): 2.1 LV sys. diameter/BSA (cm/m^2): 1.6 ? LA A2 area: 17.7 cm2 ? RA long axis: 5.2 cm LA A4 area: 15.7 cm2 ? RA area: 15.5 cm2 LA length (vol): 5.0 cm? RA vol: 39.4 ml LA vol: 47.5 ml? RA : 17.6 ml/m2 LA vol index: 21.1 ml/m2 ? RVD1 (basal): 3.6 cm TAPSE: 2.3 cm ? Doppler Measurements & Calculations Ao V2 max: 248.9 cm/sec ? LVOT Max Silvestre: 77.2 cm/sec Ao V2 mean: 163.8 cm/sec? LV V1 max P.4 mmHg Ao max P.8 mmHg? LV V1 VTI: 16.5 cm Ao mean P.1 mmHg ? KATHLEEN(I,D): 1.4 cm2 Ao V2 VTI: 51.4 cm? KATHLEEN(V,D): 1.4 cm2 ? sev ratio: 0.32 ? KATHLEEN indexed to BSA (cm^2/m^2): 0.63 ? MV E max silvestre: 57.7 cm/sec ? SV(LVOT): 72.5 ml MV A max silvestre: 83.5 cm/sec MV E/A: 0.69 Med Peak E' Silvestre: 6.0 cm/sec E/E' med: 9.6 Lat Peak E' Silvestre: 10.0 cm/sec E/E' lat: 5.8 E/e' average: 7.7 MV dec time: 0.23 sec ? Reading Physician:01:13 PM ECG Data Attestation: I personally reviewed and interpreted this ECG as follows: Interpretation: Sinus rhythm Ventricular rate is 77 Normal axis Normal QRS Normal QTC No ST T wave changes MDM Narrative Medical decision making narrative: Patient has been asymptomatic since arrival here in the ER. His EKG is unremarkable. His initial troponin negative. Second troponin higher. He continues to have no symptoms. Heparin started. He is also given aspirin. Will attempt to find placement for non ST-elevation AK. Third troponin pending. Care turned over to Dr. Pittman to continue to evaluate overnight until disposition. DWIGHT-patient signed out to me by Dr. Brunson seen evaluated patient myself. Presents today with chest discomfort with exertion. Concern for acute coronary syndrome he has rising troponin his 3rd troponin went up to 0.099 and a repeat went back down to 0.088. He is on heparin drip he has been given aspirin statin and metoprolol. On many waiting less and [facility]. His echocardiogram is ordered for tomorrow. He remains chest pain free. He will need further testing and evaluation. Is likely to consult Cardiology tomorrow to discuss plan. Dr Brunson 09/14/22: Patient received echocardiogram today which showed ejection fraction of 40-45% it also possible hypokinesis along the inferior lateral left ventricle. Discussed the case with Dr. Julien on-call with Cardiology who stated that the patient should be kept in the emergency department, kept on heparin and transferred for further cardiovascular risk stratification to include cardiac catheterization. I did discuss this with the patient. He remained stable. Chest pain-free. Care turned over to Dr. Pittman to continue to observe until disposition can be obtained. Attempted to contact multiple facilities today. Patient is on wait list however there was no bed availability. Dr Brunson 09/15/22: Resumed care of patient this morning. He continues to be chest pain-free. Continues to be on heparin. Labs are stable. Troponin is now negative. Discussed the case with Dr. Horne with Cardiology at [facility] who continues to recommend that the patient stay on heparin and we continue to find location for cardiac catheterization. Patient is tolerating oral intake. He is ambulatory. Throughout the day he started to right elbow d iscomfort. No specific trauma. He states that his right elbow feels swollen. He is somewhat warm to touch. Has had gout in the past. Anti-inflammatories have worked for him however he is on heparin. His uric acid was elevated. Was given Tylenol. No radiologic studies required currently. I also considered a hemarthrosis given the fact that he is on heparin however I am not convinced this currently. Care turned over to Dr. Pittman to continue to observe until disposition. <Ellen Pittman, DO - Last Filed: 09/16/22 02:39> Lab Data Labs: Lab Results 09/13/22 09/13/22 09/13/22 Range/Units 12:55 12:55 12:55 WBC 5.5 (4.5-11.0) X10^3/uL RBC 4.32 L (4.5-5.9) X10^6/uL Hgb 13.2 L (13.5-17.5) g/dL Hct 39.1 L (41-53) % MCV 90.5 (80-100) fL MCH 30.5 (26-34) PG MCHC 33.7 (30-36) % RDW 13.8 (11.6-14.8) % Plt Count 176 (150-400) X10^3/uL Neut % (Auto) 46.7 L (50-75) % Lymph % (Auto) 38.2 (25-40) % Leake % (Auto) 9.3 (3-14) % Eos % (Auto) 4.7 H (2-4) % Baso % (Auto) 1.1 (0-2) % Neut # (Auto) 2600 (1488-5183) /uL Lymph # (Auto) 2100 (6253-6373) /uL Leake # (Auto) 500 (0-900) /uL Eos # (Auto) 300 (0-450) /uL Baso # (Auto) 100 (0-100) /uL PT 11.7 (10.1-12.7) SECONDS INR 1.0 (0.9-1.3) APTT 32 (26-36) SECONDS Sodium 141 (137-145) mmol/L Potassium 3.9 (3.4-5.1) mmol/L Chloride 103 (98-107) mmol/L Carbon Dioxide 28 (22-32) mmol/L BUN 19 (9-20) mg/dL Creatinine 0.92 (0.66-1.25) mg/dL Estimated GFR > 60 (>60) mL/min BUN/Creatinine Ratio 20.7 (6-22) Glucose 171 H (80-110) mg/dL Uric Acid (3.5-8.5) mg/dL Calcium 8.8 (8.4-10.2) mg/dL Magnesium 1.8 (1.6-2.3) mg/dL Total Bilirubin 0.3 (0.2-1.3) mg/dL AST 25 (17-59) IU/L ALT 32 (<50) IU/L Alkaline Phosphatase 81 (38-126) U/L Total Creatine Kinase 118 (55-170) U/L CK-MB (CK-2) 1.97 (<2.37) ng/mL CK-MB (CK-2) Rel Index 1.7 (1.5-5.0) % Troponin I 0.033 (0.01-0.034) ng/mL Total Protein 7.5 (6.3-8.2) g/dL Albumin 4.1 (3.5-5.0) g/dL Globulin 3.4 (1.7-4.1) g/dL Albumin/Globulin Ratio 1.2 (1.0-2.8) Lipase 160 (23-300) U/L SARS-CoV-2 (PCR) (Negative) 09/13/22 09/13/22 09/13/22 Range/Units 13:20 15:15 19:00 WBC (4.5-11.0) X10^3/uL RBC (4.5-5.9) X10^6/uL Hgb (13.5-17.5) g/dL Hct (41-53) % MCV (80-100) fL MCH (26-34) PG MCHC (30-36) % RDW (11.6-14.8) % Plt Count (150-400) X10^3/uL Neut % (Auto) (50-75) % Lymph % (Auto) (25-40) % Leake % (Auto) (3-14) % Eos % (Auto) (2-4) % Baso % (Auto) (0-2) % Neut # (Auto) (8426-3371) /uL Lymph # (Auto) (4826-3194) /uL Leake # (Auto) (0-900) /uL Eos # (Auto) (0-450) /uL Baso # (Auto) (0-100) /uL PT (10.1-12.7) SECONDS INR (0.9-1.3) APTT (26-36) SECONDS Sodium (137-145) mmol/L Potassium (3.4-5.1) mmol/L Chloride (98-107) mmol/L Carbon Dioxide (22-32) mmol/L BUN (9-20) mg/dL Creatinine (0.66-1.25) mg/dL Estimated GFR (>60) mL/min BUN/Creatinine Ratio (6-22) Glucose (80-110) mg/dL Uric Acid (3.5-8.5) mg/dL Calcium (8.4-10.2) mg/dL Magnesium (1.6-2.3) mg/dL Total Bilirubin (0.2-1.3) mg/dL AST (17-59) IU/L ALT (<50) IU/L Alkaline Phosphatase (38-126) U/L Total Creatine Kinase 107 (55-170) U/L CK-MB (CK-2) 2.02 (<2.37) ng/mL CK-MB (CK-2) Rel Index 1.9 (1.5-5.0) % Troponin I 0.081 H 0.099 H (0.01-0.034) ng/mL Total Protein (6.3-8.2) g/dL Albumin (3.5-5.0) g/dL Globulin (1.7-4.1) g/dL Albumin/Globulin Ratio (1.0-2.8) Lipase (23-300) U/L SARS-CoV-2 (PCR) Negative (Negative) 09/13/22 09/13/22 09/14/22 Range/Units 23:35 23:35 06:04 WBC (4.5-11.0) X10^3/uL RBC (4.5-5.9) X10^6/uL Hgb (13.5-17.5) g/dL Hct (41-53) % MCV (80-100) fL MCH (26-34) PG MCHC (30-36) % RDW (11.6-14.8) % Plt Count (150-400) X10^3/uL Neut % (Auto) (50-75) % Lymph % (Auto) (25-40) % Leake % (Auto) (3-14) % Eos % (Auto) (2-4) % Baso % (Auto) (0-2) % Neut # (Auto) (1860-9718) /uL Lymph # (Auto) (3970-2068) /uL Leake # (Auto) (0-900) /uL Eos # (Auto) (0-450) /uL Baso # (Auto) (0-100) /uL PT (10.1-12.7) SECONDS INR (0.9-1.3) APTT 33 46 H D (26-36) SECONDS Sodium (137-145) mmol/L Potassium (3.4-5.1) mmol/L Chloride (98-107) mmol/L Carbon Dioxide (22-32) mmol/L BUN (9-20) mg/dL Creatinine (0.66-1.25) mg/dL Estimated GFR (>60) mL/min BUN/Creatinine Ratio (6-22) Glucose (80-110) mg/dL Uric Acid (3.5-8.5) mg/dL Calcium (8.4-10.2) mg/dL Magnesium (1.6-2.3) mg/dL Total Bilirubin (0.2-1.3) mg/dL AST (17-59) IU/L ALT (<50) IU/L Alkaline Phosphatase (38-126) U/L Total Creatine Kinase (55-170) U/L CK-MB (CK-2) (<2.37) ng/mL CK-MB (CK-2) Rel Index (1.5-5.0) % Troponin I 0.088 H (0.01-0.034) ng/mL Total Protein (6.3-8.2) g/dL Albumin (3.5-5.0) g/dL Globulin (1.7-4.1) g/dL Albumin/Globulin Ratio (1.0-2.8) Lipase (23-300) U/L SARS-CoV-2 (PCR) (Negative) 09/14/22 09/14/22 09/14/22 Range/Units 12:00 12:00 13:15 WBC 6.7 (4.5-11.0) X10^3/uL RBC 4.41 L (4.5-5.9) X10^6/uL Hgb 13.4 L (13.5-17.5) g/dL Hct 40.0 L (41-53) % MCV 90.8 (80-100) fL MCH 30.5 (26-34) PG MCHC 33.6 (30-36) % RDW 13.8 (11.6-14.8) % Plt Count 203 (150-400) X10^3/uL Neut % (Auto) 59.1 (50-75) % Lymph % (Auto) 27.3 (25-40) % Leake % (Auto) 9.2 (3-14) % Eos % (Auto) 2.7 (2-4) % Baso % (Auto) 1.7 (0-2) % Neut # (Auto) 3900 (5832-7294) /uL Lymph # (Auto) 1800 (2076-4563) /uL Leake # (Auto) 600 (0-900) /uL Eos # (Auto) 200 (0-450) /uL Baso # (Auto) 100 (0-100) /uL PT (10.1-12.7) SECONDS INR (0.9-1.3) APTT 41 H (26-36) SECONDS Sodium 139 (137-145) mmol/L Potassium 4.1 (3.4-5.1) mmol/L Chloride 104 (98-107) mmol/L Carbon Dioxide 25 (22-32) mmol/L BUN 13 (9-20) mg/dL Creatinine 0.85 (0.66-1.25) mg/dL Estimated GFR > 60 (>60) mL/min BUN/Creatinine Ratio 15.3 (6-22) Glucose 123 H (80-110) mg/dL Uric Acid (3.5-8.5) mg/dL Calcium 9.2 (8.4-10.2) mg/dL Magnesium (1.6-2.3) mg/dL Total Bilirubin 0.4 (0.2-1.3) mg/dL AST 29 (17-59) IU/L ALT 33 (<50) IU/L Alkaline Phosphatase 67 (38-126) U/L Total Creatine Kinase 205 H (55-170) U/L CK-MB (CK-2) 2.55 H (<2.37) ng/mL CK-MB (CK-2) Rel Index 1.2 L (1.5-5.0) % Troponin I 0.046 H (0.01-0.034) ng/mL Total Protein 7.7 (6.3-8.2) g/dL Albumin 4.2 (3.5-5.0) g/dL Globulin 3.5 (1.7-4.1) g/dL Albumin/Globulin Ratio 1.2 (1.0-2.8) Lipase (23-300) U/L SARS-CoV-2 (PCR) (Negative) 09/14/22 09/15/22 09/15/22 Range/Units 18:10 01:05 07:00 WBC (4.5-11.0) X10^3/uL RBC (4.5-5.9) X10^6/uL Hgb (13.5-17.5) g/dL Hct (41-53) % MCV (80-100) fL MCH (26-34) PG MCHC (30-36) % RDW (11.6-14.8) % Plt Count (150-400) X10^3/uL Neut % (Auto) (50-75) % Lymph % (Auto) (25-40) % Leake % (Auto) (3-14) % Eos % (Auto) (2-4) % Baso % (Auto) (0-2) % Neut # (Auto) (0656-9376) /uL Lymph # (Auto) (4465-4611) /uL Leake # (Auto) (0-900) /uL Eos # (Auto) (0-450) /uL Baso # (Auto) (0-100) /uL PT (10.1-12.7) SECONDS INR (0.9-1.3) APTT 37 H 48 H D 53 H (26-36) SECONDS Sodium (137-145) mmol/L Potassium (3.4-5.1) mmol/L Chloride (98-107) mmol/L Carbon Dioxide (22-32) mmol/L BUN (9-20) mg/dL Creatinine (0.66-1.25) mg/dL Estimated GFR (>60) mL/min BUN/Creatinine Ratio (6-22) Glucose (80-110) mg/dL Uric Acid (3.5-8.5) mg/dL Calcium (8.4-10.2) mg/dL Magnesium (1.6-2.3) mg/dL Total Bilirubin (0.2-1.3) mg/dL AST (17-59) IU/L ALT (<50) IU/L Alkaline Phosphatase (38-126) U/L Total Creatine Kinase (55-170) U/L CK-MB (CK-2) (<2.37) ng/mL CK-MB (CK-2) Rel Index (1.5-5.0) % Troponin I (0.01-0.034) ng/mL Total Protein (6.3-8.2) g/dL Albumin (3.5-5.0) g/dL Globulin (1.7-4.1) g/dL Albumin/Globulin Ratio (1.0-2.8) Lipase (23-300) U/L SARS-CoV-2 (PCR) (Negative) 09/15/22 09/15/22 09/15/22 Range/Units 08:27 08:27 08:27 WBC 11.2 H D (4.5-11.0) X10^3/uL RBC 4.56 (4.5-5.9) X10^6/uL Hgb 13.8 (13.5-17.5) g/dL Hct 41.2 (41-53) % MCV 90.3 (80-100) fL MCH 30.2 (26-34) PG MCHC 33.4 (30-36) % RDW 13.9 (11.6-14.8) % Plt Count 200 (150-400) X10^3/uL Neut % (Auto) 71.7 (50-75) % Lymph % (Auto) 19.1 L (25-40) % Leake % (Auto) 6.1 (3-14) % Eos % (Auto) 2.0 (2-4) % Baso % (Auto) 1.1 (0-2) % Neut # (Auto) 8100 H (1606-2302) /uL Lymph # (Auto) 2100 (9391-3453) /uL Leake # (Auto) 700 (0-900) /uL Eos # (Auto) 200 (0-450) /uL Baso # (Auto) 100 (0-100) /uL PT (10.1-12.7) SECONDS INR (0.9-1.3) APTT (26-36) SECONDS Sodium 139 (137-145) mmol/L Potassium 4.0 (3.4-5.1) mmol/L Chloride 103 (98-107) mmol/L Carbon Dioxide 24 (22-32) mmol/L BUN 16 (9-20) mg/dL Creatinine 0.99 (0.66-1.25) mg/dL Estimated GFR > 60 (>60) mL/min BUN/Creatinine Ratio 16.2 (6-22) Glucose 149 H (80-110) mg/dL Uric Acid (3.5-8.5) mg/dL Calcium 9.2 (8.4-10.2) mg/dL Magnesium (1.6-2.3) mg/dL Total Bilirubin (0.2-1.3) mg/dL AST (17-59) IU/L ALT (<50) IU/L Alkaline Phosphatase (38-126) U/L Total Creatine Kinase (55-170) U/L CK-MB (CK-2) (<2.37) ng/mL CK-MB (CK-2) Rel Index (1.5-5.0) % Troponin I 0.031 (0.01-0.034) ng/mL Total Protein (6.3-8.2) g/dL Albumin (3.5-5.0) g/dL Globulin (1.7-4.1) g/dL Albumin/Globulin Ratio (1.0-2.8) Lipase (23-300) U/L SARS-CoV-2 (PCR) (Negative) 09/15/22 Range/Units 08:27 WBC (4.5-11.0) X10^3/uL RBC (4.5-5.9) X10^6/uL Hgb (13.5-17.5) g/dL Hct (41-53) % MCV (80-100) fL MCH (26-34) PG MCHC (30-36) % RDW (11.6-14.8) % Plt Count (150-400) X10^3/uL Neut % (Auto) (50-75) % Lymph % (Auto) (25-40) % Leake % (Auto) (3-14) % Eos % (Auto) (2-4) % Baso % (Auto) (0-2) % Neut # (Auto) (8684-1171) /uL Lymph # (Auto) (6480-4719) /uL Leake # (Auto) (0-900) /uL Eos # (Auto) (0-450) /uL Baso # (Auto) (0-100) /uL PT (10.1-12.7) SECONDS INR (0.9-1.3) APTT (26-36) SECONDS Sodium (137-145) mmol/L Potassium (3.4-5.1) mmol/L Chloride (98-107) mmol/L Carbon Dioxide (22-32) mmol/L BUN (9-20) mg/dL Creatinine (0.66-1.25) mg/dL Estimated GFR (>60) mL/min BUN/Creatinine Ratio (6-22) Glucose (80-110) mg/dL Uric Acid 10.2 H (3.5-8.5) mg/dL Calcium (8.4-10.2) mg/dL Magnesium (1.6-2.3) mg/dL Total Bilirubin (0.2-1.3) mg/dL AST (17-59) IU/L ALT (<50) IU/L Alkaline Phosphatase (38-126) U/L Total Creatine Kinase (55-170) U/L CK-MB (CK-2) (<2.37) ng/mL CK-MB (CK-2) Rel Index (1.5-5.0) % Troponin I (0.01-0.034) ng/mL Total Protein (6.3-8.2) g/dL Albumin (3.5-5.0) g/dL Globulin (1.7-4.1) g/dL Albumin/Globulin Ratio (1.0-2.8) Lipase (23-300) U/L SARS-CoV-2 (PCR) (Negative) MDM Narrative Medical decision making narrative: Patient has been asymptomatic since arrival here in the ER. His EKG is unremarkable. His initial troponin negative. Second troponin higher. He c ontinues to have no symptoms. Heparin started. He is also given aspirin. Will attempt to find placement for non ST-elevation AK. Third troponin pending. Care turned over to Dr. Pittman to continue to evaluate overnight until disposition. DWIGHT-patient signed out to me by Dr. Brunson seen evaluated patient myself. Presents today with chest discomfort with exertion. Concern for acute coronary syndrome he has rising troponin his 3rd troponin went up to 0.099 and a repeat went back down to 0.088. He is on heparin drip he has been given aspirin statin and metoprolol. On many waiting less and [facility]. His echocardiogram is ordered for tomorrow. He remains chest pain free. He will need further testing and evaluation. Is likely to consult Cardiology tomorrow to discuss plan. Dr Brunson 09/14/22: Patient received echocardiogram today which showed ejection fraction of 40-45% it also possible hypokinesis along the inferior lateral left ventricle. Discussed the case with Dr. Julien on-call with Cardiology who stated that the patient should be kept in the emergency department, kept on heparin and transferred for further cardiovascular risk stratification to include cardiac catheterization. I did discuss this with the patient. He remained stable. Chest pain-free. Care turned over to Dr. Pittman to continue to observe until disposition can be obtained. Attempted to contact multiple facilities today. Patient is on wait list however there was no bed availability. Dr Brunson 09/15/22: Resumed care of patient this morning. He continues to be chest pain-free. Continues to be on heparin. Labs are stable. Troponin is now negative. Discussed the case with Dr. Horne with Cardiology at [facility] who continues to recommend that the patient stay on heparin and we continue to find location for cardiac catheterization. Patient is tolerating oral intake. He is ambulatory. Throughout the day he started to right elbow discomfort. No specific trauma. He states that his right elbow feels swollen. He is somewhat warm to touch. Has had gout in the past. Anti-inflammatories have worked for him however he is on heparin. His uric acid was elevated. Was given Tylenol. No radiologic studies required currently. I also considered a hemarthrosis given the fact that he is on heparin however I am not convinced this currently. Care turned over to Dr. Pittman to continue to observe until disposition. DWIGHT 09/15/22 -at this time patient is overall stable. He has been on heparin drip. Dr. Ventura at [facility] has kindly accepted patient. Discharge Plan Departure Patient Disposition: [facility] Clinical Impression: Non-ST elevation AK (NSTEMI) Prescriptions: No Action montelukast [Singulair] 10 mg tablet 10 mg PO DAILY Referrals: Karon Browne ARNP [Primary Care Provider] -
[2022-09-13 13:00] LABS: Add Manual Diff / Slide Review NO; Basophils Absolute Auto 100 /uL (0-100); Basophils Percent Auto 1.1 % (0-2); Eosinophils Absolute Auto 300 /uL (0-450); Eosinophils Percent Auto 4.7 % (2-4); Hematocrit 39.1 % (41-53); Hemoglobin 13.2 g/dL (13.5-17.5); Lymphocytes Absolute Auto 2100 /uL (1100-4500); Lymphocytes Percent Auto 38.2 % (25-40); Mean Corpuscular HGB Conc 33.7 % (30-36); Mean Corpuscular Hemoglobin 30.5 PG (26-34); Mean Corpuscular Volume 90.5 fL (80-100); Monocytes Absolute Auto 500 /uL (0-900); Monocytes Percent Auto 9.3 % (3-14); Neutrophils Absolute Auto 2600 /uL (1500-7000); Neutrophils Percent Auto 46.7 % (50-75); Platelet Count 176 X10^3/uL (150-400); Red Blood Cell Count 4.32 X10^6/uL (4.5-5.9); Red Cell Distribution Width 13.8 % (11.6-14.8); White Blood Cell Count 5.5 X10^3/uL (4.5-11.0)
[2022-09-13 13:13] LABS: Alanine Aminotransferase 32 IU/L (<50); Albumin 4.1 g/dL (3.5-5.0); Albumin Globulin Ratio 1.2 (1.0-2.8); Alkaline Phosphatase 81 U/L (38-126); Aspartate Aminotransferase 25 IU/L (17-59); BUN Creatinine Ratio 20.7 (6-22); Bilirubin Total 0.3 mg/dL (0.2-1.3); Blood Urea Nitrogen 19 mg/dL (9-20); Calcium 8.8 mg/dL (8.4-10.2); Carbon Dioxide 28 mmol/L (22-32); Chloride 103 mmol/L (98-107); Creatine Kinase 118 U/L (55-170); Estimated Glomerular Filt Rate > 60 mL/min (>60); Globulin 3.4 g/dL (1.7-4.1); Glucose 171 mg/dL (80-110); HEMOLYSIS < 15 (0-50); Lipase 160 U/L (23-300); Magnesium 1.8 mg/dL (1.6-2.3); Potassium 3.9 mmol/L (3.4-5.1); Sodium 141 mmol/L (137-145); Total Protein 7.5 g/dL (6.3-8.2)
[2022-09-13 13:25] LABS: Troponin I 0.033 ng/mL (0.01-0.034)
[2022-09-13 13:28] LABS: CKMB % Relative Index 1.7 % (1.5-5.0); Creatine Kinase MB 1.97 ng/mL (<2.37)
[2022-09-13 13:46] LABS: COVID19 -Nasal RAPID Negative (Negative)
[2022-09-13 16:03] LABS: Troponin I 0.081 ng/mL (0.01-0.034)
[2022-09-13 16:45] LABS: Prothrombin Time 11.7 SECONDS (10.1-12.7)
[2022-09-13 16:48] LABS: PTT Partial Thromboplastin Tim 32 SECONDS (26-36)
[2022-09-13] MEDS: ASPIRIN 81 MG CHEW TAB 324 MG PO (17:17)
[2022-09-13] MEDS: HEPARIN DRIP 25,000 UNIT/500 ML IV.SOLN 20 UNIT IV (17:19)
[2022-09-13] MEDS: HEPARIN 5,000 UNIT/ML VIAL 5000 UNIT IV (17:22)
--- NOTE | 2022-09-13 19:19 | DI.ECHO.S_ITS ---
[facility]---------+ [facility] +---------+ : : [address] [place] : : : : [id number] : : : : Phone: [phone]+ Echocardiogram Report + + :Name: WALLY BAUTISTA Study Date: 09/14/2022 Height: 68 in : :[facility] ReadingLocation: Weight: 250 lb : : Gender: Male BSA: 2.2 m2 : :: 1955 Age: 67 yrs BP: 136/63 mmHg: :Reason For Study: NSTEMI : :Ordering Physician: RUTHY, : :ABNER Performed By: Latanya Barcenas : :Referring: ABNER BLISS : + + Interpretation Summary The left ventricle is normal in size and wall thickness. Left ventricular systolic function is borderline reduced. The ejection fraction is estimated to be 45-50%. Images are suboptimal but there is possible hypokinesis along the inferolateral segments. Diastolic parameters suggest a relaxation abnormality of the left ventricle, consistent with probable normal filling pressures. The right ventricle is normal in size and function. The left atrial size is normal. Right atrial size is normal. There is mild to moderate aortic stenosis. The peak aortic velocity is 2.5 m/sec. The calculated aortic valve area is 1.4 cm2. There is mild to moderate aortic regurgitation. There is moderate aortic valve sclerosis. There is no other significant valvular heart disease. The aortic root is normal size. Procedure: A two-dimensional transthoracic echocardiogram with color flow and Doppler was performed. The study quality was technically difficult. There is no prior echocardiogram noted for this patient. A contrast injection of Definity was performed to improve assessment of LV function. Contrast was injected into an intravenous site in the right arm. A total of 3 cc of contrast was given. EKG artificat throughout. The patient was in sinus rhythm with heart rates between 60-88 bpm during the exam. Left Ventricle: The left ventricle is normal in size and wall thickness. Left ventricular systolic function is borderline reduced. The ejection fraction is estimated to be 45-50%. Images are suboptimal but there is possible hypokinesis along the inferolateral segments. Diastolic parameters suggest a relaxation abnormality of the left ventricle, consistent with probable normal filling pressures. Right Ventricle: The right ventricle is normal in size and function. Atria: The left atrial size is normal. Right atrial size is normal. There is no Doppler evidence for an interatrial shunt. Mitral Valve: The mitral valve is normal in structure and function. There is mild mitral annular calcification. There is trace mitral regurgitation. Aortic Valve: The aortic valve is not well visualized. There is moderate aortic valve sclerosis. There is mild to moderate aortic stenosis. The peak aortic velocity is 2.5 m/sec. The aortic valve mean gradient is 13 mmHg. The calculated aortic valve area is 1.4 cm2. There is mild to moderate aortic regurgitation. Tricuspid Valve: The tricuspid valve is normal in structure and function. There is mild tricuspid regurgitation. Pulmonic Valve: The pulmonic valve is not well visualized. There is no other significant valvular heart disease. Great Vessels: The aortic root is normal size. The ascending aorta is at the upper limits of normal in size. The inferior vena cava was not well visualized. Pericardium/ Pleura There is no pericardial effusion. There is no pleural effusion. MMode/2D Measurements & Calculations LVIDd: 4.6 cm LVOT diam: 2.4 cm LVIDs: 3.6 cm Ao root diam: 3.7 cm FS: 21.8 % Ao Arch Diam (Prox Trans): 2.5 cm EPSS: 1.5 cm IVSd: 0.96 cm LVPWd: 1.0 cm LV nunez. diameter/BSA (cm/m^2): 2.1 LV sys. diameter/BSA (cm/m^2): 1.6 LA A2 area: 17.7 cm2 RA long axis: 5.2 cm LA A4 area: 15.7 cm2 RA area: 15.5 cm2 LA length (vol): 5.0 cm RA vol: 39.4 ml LA vol: 47.5 ml RA : 17.6 ml/m2 LA vol index: 21.1 ml/m2 RVD1 (basal): 3.6 cm TAPSE: 2.3 cm Doppler Measurements & Calculations Ao V2 max: 248.9 cm/sec LVOT Max Silvestre: 77.2 cm/sec Ao V2 mean: 163.8 cm/sec LV V1 max P.4 mmHg Ao max P.8 mmHg LV V1 VTI: 16.5 cm Ao mean P.1 mmHg KATHLEEN(I,D): 1.4 cm2 Ao V2 VTI: 51.4 cm KATHLEEN(V,D): 1.4 cm2 sev ratio: 0.32 KATHLEEN indexed to BSA (cm^2/m^2): 0.63 MV E max silvestre: 57.7 cm/sec SV(LVOT): 72.5 ml MV A max silvestre: 83.5 cm/sec MV E/A: 0.69 Med Peak E' Silvestre: 6.0 cm/sec E/E' med: 9.6 Lat Peak E' Silvestre: 10.0 cm/sec E/E' lat: 5.8 E/e' average: 7.7 MV dec time: 0.23 sec Reading Physician:01:13 PM
[2022-09-13 19:37] LABS: Creatine Kinase 107 U/L (55-170)
[2022-09-13 19:49] LABS: Troponin I 0.099 ng/mL (0.01-0.034)
[2022-09-13 20:13] LABS: CKMB % Relative Index 1.9 % (1.5-5.0); Creatine Kinase MB 2.02 ng/mL (<2.37)
[2022-09-13] MEDS: METOPROLOL ER 25 MG TABLET PO (21:33)
[2022-09-14] VITALS (46 sets, daily range): BP systolic 130–152; BP diastolic 60–85; PULSE 60–105; RESP 10–20; O2SAT 94–97
[2022-09-14] LABS: PTT Partial Thromboplastin Tim 33 SECONDS (26-36)
[2022-09-14] MEDS: HEPARIN 5,000 UNIT/ML VIAL 3000 UNIT IV (00:09)
[2022-09-14 00:12] LABS: Troponin I 0.088 ng/mL (0.01-0.034)
[2022-09-14 06:30] LABS: PTT Partial Thromboplastin Tim 46 SECONDS (26-36)
[2022-09-14] MEDS: ASPIRIN 81 MG CHEW TAB 324 MG PO (08:53)
[2022-09-14] MEDS: ATORVASTATIN 20 MG TABLET 80 MG PO (08:54)
--- NOTE | 2022-09-14 11:48 | PC.NURSE ---
This morning, we called for waitlist availability. [facility] on [facility]. [facility] on [facility]. Left [facility] a message for a callback.
[2022-09-14 12:09] LABS: Add Manual Diff / Slide Review NO; Basophils Absolute Auto 100 /uL (0-100); Basophils Percent Auto 1.7 % (0-2); Eosinophils Absolute Auto 200 /uL (0-450); Eosinophils Percent Auto 2.7 % (2-4); Hemoglobin 13.4 g/dL (13.5-17.5); Lymphocytes Absolute Auto 1800 /uL (1100-4500); Lymphocytes Percent Auto 27.3 % (25-40); Mean Corpuscular HGB Conc 33.6 % (30-36); Mean Corpuscular Hemoglobin 30.5 PG (26-34); Mean Corpuscular Volume 90.8 fL (80-100); Monocytes Absolute Auto 600 /uL (0-900); Monocytes Percent Auto 9.2 % (3-14); Neutrophils Absolute Auto 3900 /uL (1500-7000); Neutrophils Percent Auto 59.1 % (50-75); Platelet Count 203 X10^3/uL (150-400); Red Blood Cell Count 4.41 X10^6/uL (4.5-5.9); Red Cell Distribution Width 13.8 % (11.6-14.8); White Blood Cell Count 6.7 X10^3/uL (4.5-11.0)
[2022-09-14 12:21] LABS: PTT Partial Thromboplastin Tim 41 SECONDS (26-36)
[2022-09-14 13:44] LABS: Alanine Aminotransferase 33 IU/L (<50); Albumin 4.2 g/dL (3.5-5.0); Albumin Globulin Ratio 1.2 (1.0-2.8); Alkaline Phosphatase 67 U/L (38-126); Aspartate Aminotransferase 29 IU/L (17-59); BUN Creatinine Ratio 15.3 (6-22); Bilirubin Total 0.4 mg/dL (0.2-1.3); Blood Urea Nitrogen 13 mg/dL (9-20); Calcium 9.2 mg/dL (8.4-10.2); Carbon Dioxide 25 mmol/L (22-32); Chloride 104 mmol/L (98-107); Creatine Kinase 205 U/L (55-170); Estimated Glomerular Filt Rate > 60 mL/min (>60); Globulin 3.5 g/dL (1.7-4.1); Glucose 123 mg/dL (80-110); HEMOLYSIS < 15 (0-50); Potassium 4.1 mmol/L (3.4-5.1); Sodium 139 mmol/L (137-145); Total Protein 7.7 g/dL (6.3-8.2)
[2022-09-14 13:56] LABS: Troponin I 0.046 ng/mL (0.01-0.034)
[2022-09-14 13:59] LABS: CKMB % Relative Index 1.2 % (1.5-5.0); Creatine Kinase MB 2.55 ng/mL (<2.37)
[2022-09-14] MEDS: HEPARIN DRIP 25,000 UNIT/500 ML IV.SOLN 24 UNIT IV (16:26)
[2022-09-14 18:32] LABS: PTT Partial Thromboplastin Tim 37 SECONDS (26-36)
[2022-09-15] VITALS (52 sets, daily range): BP systolic 117–154; BP diastolic 61–88; PULSE 64–133; O2SAT 92–98
[2022-09-15 01:29] LABS: PTT Partial Thromboplastin Tim 48 SECONDS (26-36)
[2022-09-15 07:15] LABS: PTT Partial Thromboplastin Tim 53 SECONDS (26-36)
--- NOTE | 2022-09-15 08:03 | PC.NURSE ---
Pt resting in bed. Heparin infusing per JAN. Pt PTT therapeutic and next draw tomorrow morning per protocol. Pt asking to get OOB to walk and stretch. Independent and ambulatory. Hygiene products given. NAD. awaiting breakfast.
[2022-09-15 08:34] LABS: Add Manual Diff / Slide Review NO; Basophils Absolute Auto 100 /uL (0-100); Basophils Percent Auto 1.1 % (0-2); Eosinophils Absolute Auto 200 /uL (0-450); Hematocrit 41.2 % (41-53); Hemoglobin 13.8 g/dL (13.5-17.5); Lymphocytes Absolute Auto 2100 /uL (1100-4500); Lymphocytes Percent Auto 19.1 % (25-40); Mean Corpuscular HGB Conc 33.4 % (30-36); Mean Corpuscular Hemoglobin 30.2 PG (26-34); Mean Corpuscular Volume 90.3 fL (80-100); Monocytes Absolute Auto 700 /uL (0-900); Monocytes Percent Auto 6.1 % (3-14); Neutrophils Absolute Auto 8100 /uL (1500-7000); Neutrophils Percent Auto 71.7 % (50-75); Platelet Count 200 X10^3/uL (150-400); Red Blood Cell Count 4.56 X10^6/uL (4.5-5.9); Red Cell Distribution Width 13.9 % (11.6-14.8); White Blood Cell Count 11.2 X10^3/uL (4.5-11.0)
[2022-09-15] MEDS: ASPIRIN 81 MG CHEW TAB 324 MG PO (08:40)
--- NOTE | 2022-09-15 08:42 | PC.NURSE ---
pt complaining of R elbow pain. states the BP cuff was hurting him last night and now his elbow hurts asking for anti-inflammatories. advised he is on heparin. Pt given his normal dose of ASA this morning and advised the ASA may also help his elbow pain. Pt agreed. states he does not want to take his lipitor due to muscle aches in his legs when he takes it. Dr Brunson made aware.
[2022-09-15 08:44] LABS: BUN Creatinine Ratio 16.2 (6-22); Blood Urea Nitrogen 16 mg/dL (9-20); Calcium 9.2 mg/dL (8.4-10.2); Carbon Dioxide 24 mmol/L (22-32); Chloride 103 mmol/L (98-107); Estimated Glomerular Filt Rate > 60 mL/min (>60); Glucose 149 mg/dL (80-110); HEMOLYSIS < 15 (0-50); Sodium 139 mmol/L (137-145)
[2022-09-15 08:56] LABS: Troponin I 0.031 ng/mL (0.01-0.034)
[2022-09-15] MEDS: METOPROLOL IR 25 MG TABLET PO ×2 (10:41→20:48)
[2022-09-15] MEDS: HEPARIN DRIP 25,000 UNIT/500 ML IV.SOLN 25 UNIT IV (12:46)
[2022-09-15 17:22] LABS: Uric Acid 10.2 mg/dL (3.5-8.5)
--- NOTE | 2022-09-15 17:37 | PC.NURSE ---
pt's right elbow is swollen and hot since last night. pt has used ice on it. painful. dr. burgos aware. uric acid level sent . will give some tylenol
[2022-09-15] MEDS: ACETAMINOPHEN 325 MG TABLET 650 MG PO ×2 (18:03→23:04)
== END 2022-09-15 23:07 | disposition short-term general hospital (02) ==
PROVIDERS: Emergency Medicine; Emergency Provider Emergency Medicine; PCP Nurse Practitioner Family
DX: I21.4 Non-ST elevation (NSTEMI) myocardial infarction (principal); Z20.822 Contact with and (suspected) exposure to COVID-19
CPT/HCPCS: 36415; 71045; 80048; 80053; 82550; 82553; 83690; 83735; 84484; 84550; 85025; 85610; 85730; 87635; 93005; 93010; 93306; 96365; 96366; 96375; 96376; 99284; 99285; C9803; J1644

== ENCOUNTER → 2022-10-13 16:52 | Outpatient (CLI) | payer MEDICARE, OTHER, SELFPAY ==
[2022-10-13 17:58] LABS: Uric Acid 8.3 mg/dL (3.5-8.5)
[2022-10-13 18:05] LABS: Hemoglobin A1C% w Est Avg Glu 5.8 % (4.0-6.0)
== END ==
PROVIDERS: PCP Family Medicine; Referring Provider Family Medicine; Visit Provider Family Medicine
DX: R73.03 Prediabetes (principal); M10.9 Gout, unspecified
CPT/HCPCS: 36415; 83036; 84550

== ENCOUNTER 2023-04-20 14:15 | Outpatient (RCR) | payer MEDICARE, OTHER, SELFPAY | END 2023-04-20 16:15 | LOC: CAR 14:15 | PROVIDERS: PCP Family Medicine; Referring Provider Family Medicine; Visit Provider Family Medicine | DX: I21.3 ST elevation (STEMI) myocardial infarction of unspecified site (principal) | CPT/HCPCS: 93798 ==

== ENCOUNTER → 2023-10-19 11:39 | Outpatient (CLI) | payer MEDICARE, OTHER, SELFPAY ==
[2023-10-19 13:40] LABS: Cholesterol 110 mg/dL (140-199); HDL Cholesterol 43 mg/dL (40-60); LDL Cholesterol Calculated 54 mg/dL (<100); Triglycerides 66 mg/dL (35-150)
== END ==
PROVIDERS: PCP Family Medicine; Referring Provider Internal Medicine Cardiovascular Disease; Visit Provider Internal Medicine Cardiovascular Disease
DX: R73.03 Prediabetes (principal); E78.5 Hyperlipidemia, unspecified
CPT/HCPCS: 36415; 80061; 83036

== ENCOUNTER → 2023-11-24 08:49 | Outpatient (CLI) | payer MEDICARE, OTHER, SELFPAY ==
--- NOTE | 2023-11-24 08:52 | DI.MRI.S_ITS ---
PROCEDURE: MR KNEE RT WO CON INDICATIONS: ARTHRITIS, R KNEE TECHNIQUE: Noncontrast sagittal PD fast spin echo and T2 fast spin echo with fat saturation, sagittal 3-D FLASH with fat saturation; coronal T1 spin echo and PD fast spin echo with fat saturation, and axial PD fast spin echo with fat saturation through the knee. COMPARISON: None. FINDINGS: Image quality: Excellent. Menisci: Peripheral displacement of medial meniscus is seen bowing medial collateral ligament. Complex tear involving anterior horn, body and posterior horn of medial meniscus is seen extending to both superior and inferior articulating surfaces. Lobulated and septated Mary meniscal cyst adjacent to posterior horn of medial meniscus is seen measures 1 x 1 x 1.3 cm in size. There is also suggestion of complex tear involving anterior horn and body of lateral meniscus extending to both superior and inferior articulating surfaces. The meniscal root ligaments are intact. Cruciate ligaments: The anterior cruciate ligament is markedly thickened with intrasubstance T2 hyperintense signal. The posterior cruciate ligament is intact. Medial structures: The medial collateral ligament appears thickened with surrounding soft tissue edema. Visualized portions of the pes anserinus tendons appear normal. No abnormal bursal fluid. Lateral structures: The lateral collateral ligament is thickened with intrasubstance T2 hyperintense signal near its femoral insertion. The long and short heads of the biceps femoris tendon appear intact. The popliteus tendon appears normal. Iliotibial band appears normal. Anterior structures: The quadriceps and patellar tendons appear intact. Patellar alignment is normal. No femoral trochlear dysplasia or ventral trochlear prominence. No edema in the infrapatellar fat pad. Bones and cartilage: Moderate to severe tricompartmental osteoarthritis and chondromalacia is seen more notably involving medial and lateral femoral tibial compartments. No fracture or dislocation. Joint space: There is moderate to large knee joint fluid. No Fritz's cyst. Normal appearing synovial plicae are incidentally noted. IMPRESSION: 1. Moderate to severe tricompartmental osteoarthritis and chondromalacia as above. No fracture or dislocation. Moderate to large joint effusion, no gross loose bodies. 2. Complex tear involving entire medial meniscus extending to both superior and inferior articulating surfaces. Adjacent Mary meniscal cyst as above. Complex tear also seen involving body and anterior horn of lateral meniscus extending to both superior and inferior articulating surfaces. 3. Sprain/low to moderate grade intrasubstance partial-thickness tear involving anterior cruciate ligament. No ACL rupture. The PCL is intact. 4. Low to moderate grade MCL sprain/partial-thickness tear and low-grade LCL sprain. Dictated by: Franklyn Sierra M.D. on 11/24/2023 at 12:05 Approved by: Franklyn Sierra M.D. on 11/24/2023 at 12:11
== END ==
PROVIDERS: PCP Family Medicine; Referring Provider Orthopaedic Surgery Foot and Ankle Surgery; Visit Provider Orthopaedic Surgery Foot and Ankle Surgery
DX: S83.231A Complex tear of medial meniscus, current injury, right knee, initial encounter (principal); S83.271A Complex tear of lateral meniscus, current injury, right knee, initial encounter; S83.511A Sprain of anterior cruciate ligament of right knee, initial encounter; S83.411A Sprain of medial collateral ligament of right knee, initial encounter; S83.421A Sprain of lateral collateral ligament of right knee, initial encounter; M13.861 Other specified arthritis, right knee; M94.261 Chondromalacia, right knee; M25.461 Effusion, right knee
CPT/HCPCS: 73721

== ENCOUNTER → 2023-12-05 13:49 | Outpatient (CLI) | payer MEDICARE, OTHER, SELFPAY ==
[2023-12-05 14:38] LABS: Alanine Aminotransferase 46 IU/L (<50); Albumin 4.2 g/dL (3.5-5.0); Albumin Globulin Ratio 1.4 (1.0-2.8); Alkaline Phosphatase 76 U/L (38-126); Aspartate Aminotransferase 34 IU/L (17-59); BUN Creatinine Ratio 22.5 (6-22); Bilirubin Total 0.5 mg/dL (0.2-1.3); Blood Urea Nitrogen 20 mg/dL (9-20); Calcium 9.6 mg/dL (8.4-10.2); Carbon Dioxide 27 mmol/L (22-32); Chloride 104 mmol/L (98-107); Estimated Glomerular Filt Rate > 60 mL/min (>60); Glucose 103 mg/dL (80-110); HEMOLYSIS < 15 (0-50); Potassium 4.5 mmol/L (3.4-5.1); Sodium 138 mmol/L (137-145); Total Protein 7.2 g/dL (6.3-8.2)
[2023-12-05 15:03] LABS: Prostate Specific Antigen Scrn 2.04 ng/mL (0.1-4.0)
[2023-12-05 16:52] LABS: Hep C Virus Ab w/Reflex Quant NEGATIVE s/c (NEGATIVE)
== END ==
PROVIDERS: PCP Family Medicine; Referring Provider Family Medicine; Visit Provider Family Medicine
DX: Z12.5 Encounter for screening for malignant neoplasm of prostate (principal); I10 Essential (primary) hypertension; Z00.00 Encounter for general adult medical examination without abnormal findings; R73.03 Prediabetes; E78.2 Mixed hyperlipidemia; Z11.59 Encounter for screening for other viral diseases
CPT/HCPCS: 36415; 80053; 86803; G0103

== ENCOUNTER → 2023-12-15 09:09 | Outpatient (CLI) | payer MEDICARE, OTHER, SELFPAY ==
--- NOTE | 2023-12-15 09:10 | DI.ECHO.S_ITS ---
[facility] +---------+ [facility] +---------+ : : [address] : : : : [id number] : : : : Phone: [phone]+ Echocardiogram Report + + :Name: WALLY BAUTISTA Study Date: 12/15/2023 Height: 68 in : :[facility] ReadingLocation: Weight: 240 lb : : Gender: Male BSA: 2.2 m2 : :: 1955 Age: 68 yrs BP: 146/76 mmHg: :Reason For Study: ISCHEMIC CARDIOMYOPATHY : :Ordering Physician: GIUSEPPE, : :NATASHA Performed By: Yaron Irby : :Referring: NATASHA CHIN : + + Interpretation Summary The left ventricle is normal in size and wall thickness. Overall LVEF about 50 to 55% range with basal to mid inferolateral hypokinesis. Previously LV EF 45 to 50% no significant change in the wall motion abnormalities. The right ventricle is normal in size and function. The aortic valve is heavily calcified. The peak aortic velocity is 3.13 m/sec. The aortic valve mean gradient is 23.7 mmHg. The peak aortic velocity on the previous exam was 2.5 m/sec. The calculated aortic valve area is 1.2 cm2. sev ratio: 0.30. Aortic cusp separation about 1.2 cm. Overall moderate aortic stenosis. Compared to the prior echo study, there has been an increase in the severity of aortic stenosis. There is mild aortic regurgitation. Previously mild to moderate AR. The IVC is of normal diameter and collapses greater than 50% with a sniff. This suggests a low right atrial pressure of 3 mm Hg. Procedure: There has been no significant change since the previous study. The study quality was technically adequate. Comparison is made with the echocardiogram of 09/14/22. The patient was in normal sinus rhythm during the exam. The heart rate ranged between 57-69 bpm during the study. Left Ventricle: The left ventricle is normal in size and wall thickness. There is no thrombus. Overall LVEF about 50 to 55% range with basal to mid inferolateral hypokinesis. Previously LV EF 45 to 50% no significant change in the wall motion abnormalities. MV E/A: 1.0 Med Peak E' Silvestre: 6.6 cm/sec E/E' med: 12.2. Right Ventricle: The right ventricle is normal in size and function. The right ventricular systolic function is normal. Atria: The left atrial size is normal. There has been no significant change since the previous study. Right atrial size is normal. The interatrial septum grossly appears intact with no obvious evidence for an atrial septal defect. Mitral Valve: The mitral valve is normal in structure and function. There is no mitral valve stenosis. There is no mitral regurgitation noted. Aortic Valve: The aortic valve is trileaflet. The aortic valve is heavily calcified. There is moderate aortic stenosis. The peak aortic velocity is 3.13 m/sec. The aortic valve mean gradient is 23.7 mmHg. The peak aortic velocity on the previous exam was 2.5 m/sec. The calculated aortic valve area is 1.2 cm2. Compared to the prior echo study, there has been an increase in the severity of aortic stenosis. There is mild aortic regurgitation. Tricuspid Valve: The tricuspid valve is normal in structure and function. There is no tricuspid stenosis. There is trace tricuspid regurgitation. Pulmonary artery pressures cannot be estimated because of the lack of a measurable TR jet velocity. Pulmonic Valve: The pulmonic valve is not well seen, but is grossly normal. There is no pulmonic valvular stenosis. There is trace pulmonic regurgitation. Great Vessels: The aortic root is mildly dilated. The ascending aorta is at the upper limits of normal in size. The IVC is of normal diameter and collapses greater than 50% with a sniff. This suggests a low right atrial pressure of 3 mm Hg. Pericardium/ Pleura There is no pericardial effusion. There is no pleural effusion. MMode/2D Measurements & Calculations LVIDd: 4.8 cm LVOT diam: 2.3 cm LVIDs: 3.4 cm Ao root diam: 3.7 cm FS: 29.0 % asc Aorta Diam: 3.5 cm IVSd: 1.1 cm Ao Arch Diam (Prox Trans): 2.8 cm LVPWd: 0.90 cm LV nunez. diameter/BSA (cm/m^2): 2.2 LV sys. diameter/BSA (cm/m^2): 1.6 LA A2 area: 20.7 cm2 RA long axis: 5.5 cm LA A4 area: 14.9 cm2 RA area: 17.1 cm2 LA length (vol): 4.5 cm RA vol: 45.2 ml LA vol: 58.7 ml RA : 20.5 ml/m2 LA vol index: 26.6 ml/m2 IVC diam: 1.6 cm RVD1 (basal): 4.0 cm RVD2 (mid): 3.4 cm TAPSE: 2.8 cm Doppler Measurements & Calculations Ao V2 max: 312.9 cm/sec LVOT Max Silvestre: 90.3 cm/sec Ao V2 mean: 229.1 cm/sec LV V1 max P.3 mmHg Ao max P.7 mmHg LV V1 VTI: 24.3 cm Ao mean P.7 mmHg KATHLEEN(I,D): 1.3 cm2 Ao V2 VTI: 80.2 cm KATHLEEN(V,D): 1.2 cm2 sev ratio: 0.30 KATHLEEN indexed to BSA (cm^2/m^2): 0.59 AI P1/2t: 626.4 msec AI dec slope: 133.3 cm/sec2 MV E max silvestre: 80.2 cm/sec PA V2 max: 111.2 cm/sec MV A max silvestre: 78.6 cm/sec PA V2 mean: 64.9 cm/sec MV E/A: 1.0 PA mean P.0 mmHg Med Peak E' Silvestre: 6.6 cm/sec PA pr(Accel): 27.6 mmHg E/E' med: 12.2 Lat Peak E' Silvestre: 10.9 cm/sec E/E' lat: 7.3 E/e' average: 9.8 MV dec time: 0.26 sec SV(LVOT): 103.7 ml Reading Physician:02:47 PM
== END ==
PROVIDERS: PCP Family Medicine; Referring Provider Internal Medicine Cardiovascular Disease; Visit Provider Internal Medicine Cardiovascular Disease
DX: I35.2 Nonrheumatic aortic (valve) stenosis with insufficiency (principal); I77.810 Thoracic aortic ectasia; I25.5 Ischemic cardiomyopathy
CPT/HCPCS: 93306

== ENCOUNTER → 2024-04-30 09:29 | Outpatient (CLI) | payer MEDICARE, OTHER, SELFPAY ==
[2024-04-30 10:53] LABS: Add Manual Diff / Slide Review NO; Basophils Absolute Auto 100 /uL (0-100); Basophils Percent Auto 0.8 % (0-2); Eosinophils Absolute Auto 100 /uL (0-450); Hematocrit 38.8 % (41-53); Hemoglobin 13.2 g/dL (13.5-17.5); Lymphocytes Absolute Auto 2300 /uL (1100-4500); Lymphocytes Percent Auto 33.8 % (25-40); Mean Corpuscular Hemoglobin 31.3 PG (26-34); Mean Corpuscular Volume 92.1 fL (80-100); Monocytes Absolute Auto 500 /uL (0-900); Monocytes Percent Auto 6.8 % (3-14); Neutrophils Absolute Auto 3800 /uL (1500-7000); Neutrophils Percent Auto 56.6 % (50-75); Platelet Count 187 X10^3/uL (150-400); Red Blood Cell Count 4.21 X10^6/uL (4.5-5.9); Red Cell Distribution Width 13.2 % (11.6-14.8); White Blood Cell Count 6.7 X10^3/uL (4.5-11.0)
[2024-04-30 11:03] LABS: Hemoglobin A1C% w Est Avg Glu 5.9 % (4.0-6.0)
[2024-04-30 11:20] LABS: BUN Creatinine Ratio 23.5 (6-22); Blood Urea Nitrogen 23 mg/dL (9-20); Calcium 8.7 mg/dL (8.4-10.2); Carbon Dioxide 23 mmol/L (22-32); Chloride 107 mmol/L (98-107); Estimated Glomerular Filt Rate > 60 mL/min (>60); Glucose 118 mg/dL (80-110); HEMOLYSIS < 15 (0-50); Potassium 4.2 mmol/L (3.4-5.1); Sodium 141 mmol/L (137-145)
== END ==
LOC: LAB 09:31
PROVIDERS: PCP Family Medicine; Referring Provider Orthopaedic Surgery Foot and Ankle Surgery; Visit Provider Orthopaedic Surgery Foot and Ankle Surgery
DX: Z01.812 Encounter for preprocedural laboratory examination (principal); R73.9 Hyperglycemia, unspecified
CPT/HCPCS: 36415; 80048; 83036; 85025

== ENCOUNTER 2024-05-23 11:34 | Day surgery (SDC) | payer MEDICARE, OTHER, SELFPAY ==
[2024-05-17 13:21] VITALS: BMI 37.5
--- NOTE | 2024-05-23 06:00 | DI.RAD.S_ITS ---
PROCEDURE: XR KNEE RT 1TO2V INDICATIONS: TKA TECHNIQUE: 2 view(s) of the knee acquired. COMPARISON: [facility], CR, XR KNEE ARTHRITIC SERIES , 11/15/2023, 14:27. FINDINGS: Bones: Patient is status post knee joint arthroplasty. Hardware components are in expected positions. Visualized bony structures are intact. Soft tissues: Overlying postoperative changes are noted. IMPRESSION: Expected post-operative appearance of a knee arthroplasty. Dictated by: Sunday Asencio M.D. on 05/23/2024 at 21:47 Approved by: Sunday Asencio M.D. on 05/23/2024 at 21:48
[2024-05-23 12:12] VITALS: BMI 37.5
[2024-05-23 12:19] VITALS: BP 137/81; PULSE 77; RESP 16; TEMP 36.8; O2SAT 98
[2024-05-23] MEDS: LACTATED RINGERS 1,000 ML 42 ML IV ×2 (12:30→16:53)
--- NOTE | 2024-05-23 14:33 | PM.PREOP ---
Pre-operative Note Interval Note History & Physical reviewed/Exam performed by Physician: Yes Changes to H&P: No
--- NOTE | 2024-05-23 14:42 | SUR.PREOP ---
Block start time [1430] . Monitoring initiated and maintained throughout procedure. Oxygen and medications given per anesthesiologist instructions. Patient remained stable throughout procedure, no adverse reactions noted. Block end time [1440].
--- NOTE | 2024-05-23 15:08 | P.OP_ITS ---
Operative Date/Time/Diagnoses Date of procedure: 05/23/24 Time of procedure: 15:09 Pre-op diagnosis: Right knee arthritis Post-op diagnosis: same Procedure & Clinicians Procedure: Right total knee arthroplasty 24890 Robotic assisted surgery [id number] Computer navigation assisted surgery 14182 Same procedure as scheduled: Yes Indications: The patient is a 69-year-old male with end-stage [id number] knee arthritis. The patient has a significant right varus knee arthritis. They have failed conservative treatment with activity modifications, injections, physical therapy and bracing. They has been indicated for total knee replacement. The risks and benefits of the procedure have been discussed with the patient even opportunity to ask questions. The risks of surgery include but are not limited to infection, malunion, nonunion, fracture, loosening, persistence of pain, damage to nerves and blood vessels, need for additional procedures, DVT, PE, cardiopulmonary complications and . The patient expressed a thorough understanding of the risks and benefits of surgery and has elected to proceed. Consent was signed in the office. During the operation the services of physician surgical forceps fabricator were medically indicated and necessary to provide the exposure of the operative site for the surgical procedure and to maintain the limb in a proper position to carry out the procedure safely and efficiently. Without a qualified office support assistant being present this would extend the operative procedure and would have made the procedure more technically difficult to perform. The surgical forceps fabricator was medically necessary for the proper positioning, retraction and manipulation of the limb, proper exposure, and manipulation of the tissue for implantation implants and closure. Surgeon: Nannette Barrientos [place] Captain: Ricky Nunes Anesthesia Type: General, Peripheral nerve block and Local Operative Notes Findings: Varus knee arthritis Closure Type: primary Specimen(s): none sent Prosthetic devices, grafts, tissues, transplants, or devices: Morris and nephew journey 2 bcs Femur cobalt chromium 6 Tibia 5 Poly 11mm Patella 35x 7.5 Estimated Blood Loss (mL): 100 Blood products transfused: none Tourniquet time (min): 98 Procedure in detail: Patient was seen in the preoperative area where the patient and site of surgery were identified in the operative right knee was marked informed consent confirmed. This was the right knee. Patient received the appropriate preoperative antibiotics this was 2 g of Ancef. And other preoperative medications and was taken to the operating room placed on operating table in the supine position. Spinal anesthetic were administered. The operative extremity was then prepped and draped in the standard sterile fashion with a nonsterile tourniquet high on the thigh. Patient was placed on the green foam bolsters. A lateral post was placed at the level of the proximal thigh /trochanter area as a lateral post. Formal time-out procedure was performed confirming the patient's side and site of surgery and administration of appropriate preoperative antibiotics and implants were in the room accounted for. All were in agreement. Patient received a preoperative dose of tranexamic acid and then a 2nd dose at tourniquet release Patient was prepped and draped in the standard sterile fashion and the foot was placed into the leg castro. This was taken into high flexion and the incision was marked out over the anterior knee to the level of the medial tubercle tubercle. The Esmarch was then used for exsanguination and the tourniquet was inflated to 250 mmHg. Was made through the skin and subcutaneous tissue in high flexion this was then brought down into 30? of flexion for the medial parapatellar arthrotomy. A marker pen was used to nicholas the arthrotomy site for later repair. Joint fluid was evacuated. The anterior osteophytes and soft tissues were removed. Routine medial release was initially made along the medi al proximal tibia with Bovie. The patella was 1st cut using the saw sized and prepped and then subluxed throughout the case and protected. The leg was then taken into extension and the patella was everted and the patella was cut to accommodate the patellar button. This was sized to a 30 mm button for a 7.5 mm thickness to recreate the original dimensions of the patella. Poly was removed and the protector replaced and the patella was subluxed and the knee was taken back up into flexion and attention was returned to the femur. Then the rotational landmarks of Whitesides line and the trans epicondylar axis were marked on the femur with electrocautery. ACL and PCL were released. Then the Cori robotic pins were placed into the femur and tibia and the race set up. Landmarks were established and the robotic planning was commenced. Plan was developed and improved and adjusted as necessary to create a balanced knee. Initial measurements 4 degree of varus with goal correcting to about 3? varus to 2 mm of laxity. Femur was externally rotated 4 ? Plan was satisfactory the bur was used to remove the distal femur then the 5 in 1 cutting block was applied complete the femur cuts. Attention was then turned to the tibia and the tibial resection was made in accordance with the robotic planning. The trials were placed. And the femoral notch was cut a standard fashion using Reamer then slap hammer. The knee was trialed and the checked. Knee was balanced in flexion extension. Range of motion 0-135 degrees was obtained. The rotation femoral trial was marked Bovie on the bone and checked with a long juan daniel. The tibia was then finished with a drill and flange cut and then The trial implants were removed. Then in extension the posterior capsule was injected with a mixture of 40 mL of 0.25% Marcaine and 20 mL of Exparel care to avoid excessive injection posterior laterally. The remainder of this was saved for the capsule and subcutaneous tissue and placed during cement curing. The wound and bone was irrigated with pulsatile lavage. This was then dried with a sponge. The components were verified and opened and the cement was mixed. Cement was applied to the components and then to the bone then the tibia was cemented in place 1st followed by the femur then the patella. Excess cement was removed. With care looking around the back of the knee. Remainder of the injec tion was injected around the capsule. trial poly was placed back in the leg was placed into extension for the patellar cementing. After this was cured approximately 15 minutes later and the dilute Betadine solution was placed for at least 3 minutes in the wound this was then irrigated out and the final poly was placed. This was a 11 mm poly. The tourniquet was released hemostasis was achieved. Final 1g of tranexamic acid was given IV at the time of tourniquet release. The capsule was closed with 1. Ethibond suture. Followed by a running Quill stitch. Subcutaneous layer was closed with 3-0 Vicryl suture. Skin was closed with a running V lock suture Stratafix Monocryl type suture and Dermabond. An Aquacel dressing was placed . An José Luis wrap was applied. Anesthetic was terminated the patient was woken from anesthesia and taken to recovery room in good condition. There no immediate complications from this procedure. The patient will be maintained on a standard total knee replacement protocol with weight-bearing as tolerated. Complications: none Post-operative Condition: stable Disposition: PACU Plan for aftercare: Weightbear as tolerated. Standard postoperative knee replacement protocol. Aspirin 81 mg b.i.d. x6 weeks for DVT prophylaxis. Follow up in Orthopedic Clinic in 2 weeks.
[2024-05-23] MEDS: CEFAZOLIN 2 GM/100 ML PREMIX 100 ML IV ×2 (15:30→23:23)
[2024-05-23] MEDS: TRANEXAMIC ACID 1,000 MG VIAL 1000 MG INJ (15:30)
--- NOTE | 2024-05-23 15:52 | SUR.OPER ---
Supine on padded OR bed. Pillow under head, arms secured on padded armboards <90 degree abduction. Safety belt across torso. Non-operative leg secured with tape over blanket over lower leg. Operative leg secured in DeMayo positioner. Foam padded brace at thigh of operative leg.
[2024-05-23] MEDS: BUPIVACAINE 0.25% (PF) 30 ML, EPINEPHrine 0.15 MG INJ (16:05)
[2024-05-23] MEDS: BUPIVACAINE LIPOSOME 266 MG/20 ML VIAL INJ (17:00)
[2024-05-23 17:52] VITALS: BP 107/66; PULSE 91; RESP 11; TEMP 36.9; O2SAT 94
[2024-05-23 17:57] VITALS: BP 123/68; PULSE 82; RESP 14; TEMP 36.9; O2SAT 94
[2024-05-23 18:05] VITALS: BP 107/77; PULSE 81; RESP 12; TEMP 36.9; O2SAT 94
[2024-05-23 18:10] VITALS: BP 105/48; PULSE 76; RESP 12; TEMP 36.8; O2SAT 97
[2024-05-23 18:42] VITALS: BMI 38.9
[2024-05-23 19:55] VITALS: BP 136/77; PULSE 76; RESP 17; TEMP 36.4; O2SAT 98
[2024-05-23] MEDS: LACTATED RINGERS 1,000 ML 100 ML IV ×2 (21:14→23:23)
[2024-05-23] MEDS: DOCUSATE 100 MG CAPSULE PO (21:14)
[2024-05-23] MEDS: ASPIRIN EC 81 MG TABLET PO (21:14)
[2024-05-23] MEDS: ACETAMINOPHEN 325 MG TABLET 650 MG PO (21:23)
[2024-05-23] MEDS: MELOXICAM 7.5 MG TABLET 15 MG PO (23:23)
[2024-05-24 02:39] VITALS: BMI 38.9
[2024-05-24 05:02] LABS: Hemoglobin 11.8 g/dL (13.5-17.5)
[2024-05-24] MEDS: ACETAMINOPHEN 325 MG TABLET 650 MG PO ×2 (06:32→12:48)
[2024-05-24] MEDS: OXYCODONE IR 5 MG TABLET PO ×3 (06:32→12:48)
[2024-05-24] MEDS: CEFAZOLIN 2 GM/100 ML PREMIX 100 ML IV (06:33)
--- NOTE | 2024-05-24 07:16 | PM.PNPO.1 ---
Subjective Subjective Date Patient Seen: 05/24/24 Time Patient Seen: 07:16 Interval history: Patient's pain is moderate. Denies fever or chills. No nausea or vomiting. Patient has a good friend that will be assisting him at home. Exam Vital Signs (past 8 hours): Oxygen Delivery Method Room Air Oxygen Flow Rate 0 Narrative Exam Narrative: 69-year-old male resting comfortably in bed in no apparent distress. Dressing is clean, dry and intact. Motor functions intact bilateral lower extremities. Const General: comfortable Nutritional Appearance: average body habitus Orientation: alert Resp Effort & Inspection: normal respiratory effort and able to speak in complete sentences Objective Labs 05/24/24 04:18 Labs: Laboratory Results - last 24 hr 05/24/24 04:18 Hgb 11.8 L Hct 35.0 L PFSH Medical History BCC (basal cell carcinoma) History of left heart catheterization (09/2022) CAD (coronary artery disease) Encounter for subsequent annual wellness visit (AWV) in Medicare patient Benign essential HTN STEMI (ST elevation myocardial infarction) (09/2022) Prediabetes (02/2021) Former smoker Mixed hyperlipidemia (08/2019) Gout (~1979) Asthma (~2011) Surgical History History of atherectomy (09/2022) Hx of heart artery stent (09/2022) Anesthesia History of sinus surgery (~11/22/13) Family History Father History of heart disease Mother Cancer Social History household members: none Smoking Status: Former smoker Tobacco: How many years used: 20 second hand exposure: No alcohol intake: current substance use type: does not use Assessment & Plan Post-op Postoperative Procedures: Procedures Operation Date: 05/23/24 13:15 Actual Procedure Side Surgeon p Total Knee Arthroplasty - Robot Right Nannette Barrientos MD Postoperative day: 1 Postoperative status: doing well Postoperative status narrative: Stable Postoperative plan narrative: Weight-bearing as tolerated, standard postop knee replacement protocol. Multimodal pain management Aspirin 81 mg b.i.d. x6 weeks for DVT prophylaxis Mobilize this morning with physical therapy likely discharge home later today Quality VTE Deep Vein Thrombosis/Pulmonary Embolism Present on Admission: No
[2024-05-24] MEDS: FISH OIL 1,000 MG CAPSULE 1000 MG PO (09:30)
[2024-05-24] MEDS: CHOLECALCIFEROL (VITAMIN D3) 5,000 UNIT TABLET 5000 UNIT PO (09:30)
[2024-05-24] MEDS: DOCUSATE 100 MG CAPSULE PO (09:30)
[2024-05-24 09:31] VITALS: BP 130/72; PULSE 84
[2024-05-24] MEDS: LOSARTAN 25 MG TABLET PO (09:31)
[2024-05-24] MEDS: METOPROLOL ER 50 MG TABLET PO (09:31)
[2024-05-24] MEDS: PRENATAL VIT,CALC/IRON/FOLIC 1 TABLET 1 TAB PO (09:32)
[2024-05-24] MEDS: ATORVASTATIN 20 MG TABLET 40 MG PO (09:32)
[2024-05-24] MEDS: ASPIRIN EC 81 MG TABLET PO (09:32)
[2024-05-24] MEDS: MAGNESIUM OXIDE 400 MG TABLET PO (09:32)
--- NOTE | 2024-05-24 09:46 | PT.IIE ---
Current Diagnoses Unilateral primary osteoarthritis, right knee (05/23/24) Surgery Performed Operation Date: 05/23/24 13:15 Actual Procedures p Total Knee Arthroplasty - Robot(Right) - Nannette Barrientos MD Surgical History (Last Reviewed 05/24/24 @ 07:18 by Yusuf Francis PA-C) Anesthesia History of atherectomy (09/2022) History of sinus surgery (~11/22/13) Hx of heart artery stent (09/2022) Medical History (Last Reviewed 05/24/24 @ 07:18 by Yusuf Francis PA-C) Asthma (~2011) BCC (basal cell carcinoma) Benign essential HTN CAD (coronary artery disease) Encounter for subsequent annual wellness visit (AWV) in Medicare patient Former smoker Gout (~1979) History of left heart catheterization (09/2022) Mixed hyperlipidemia (08/2019) Prediabetes (02/2021) STEMI (ST elevation myocardial infarction) (09/2022) Physical Therapy Inpatient Evaluation/Re-Eval M1 PT/OT-IP Prior Functional Status Start: 05/24/24 08:22 Freq: NEEDED Status: Active Protocol: Document 05/24/24 08:30 MB (Rec: 05/24/24 09:46 MB [id number]) Medical Review Prior Functional Status Medical History Reviewed Yes Diet/Fluid Consistency Regular Communication WNLs Mobility and Gait I Activities of Daily Living and IADL's I, lived alone Social History Household Members none Living Arrangements House Number of Floors (Floors) One Floor Number of Stairs To Enter/Railing? 2 steps to enter with no rail Home Environment Standard Height Toilet,Walk in Shower,Built-In Shower Seat Home Equipment Front Wheel Walker,Four Wheel Walker,Straight Cane,Manual Wheelchair,Hand Held Shower, Grab Bars Near Toilet,Grab Bars In Shower Employment Status Retired M2 PT-IP Current Condition Start: 05/24/24 08:22 Freq: NEEDED Status: Active Protocol: Document 05/24/24 08:30 MB (Rec: 05/24/24 09:46 MB [id number]) Physical Therapy Current Condition Current Condition Evaluation Date 05/24/24 Treatment Diagnosis R TKR M3 PT-IP Subjective Start: 05/24/24 08:22 Freq: NEEDED Status: Active Protocol: Document 05/24/24 08:30 MB (Rec: 05/24/24 09:46 MB [id number]) Subjective Physical Therapy Visit Type Type Initial Evaluation Visit Start Time 08:30 Visit Stop Time 08:55 Number of CIRCUS PERFORMER Visits 0 Physical Therapy Visit Comments Patient Comments Pt is agreeeable to PT Therapy Pain Assessment Pain When Pain Assessed During Mobility Pain Present Pain Present Pain Reported Location Right Knee Intensity 8 Scale Used Numeric (0 - 10) M4 PT-IP Mobility and Gait Start: 05/24/24 08:22 Freq: NEEDED Status: Active Protocol: Document 05/24/24 08:30 MB (Rec: 05/24/24 09:46 MB [id number]) PT-Bed Mobility Assessment Rolling Level of Assist Contact Guard Assistance,1 Person Assistance Supine to Sit Supine to Sit Contact Guard Assistance,1 Person Assistance Scooting Scooting to Edge of Bed Contact Guard Assistance PT-Transfer Assessment Sit to and From Stand Sit to and from Stand Contact Guard Assistance,1 Person Assistance,Use of Upper Extremities Equipment Transfer Assistive Device Gait Belt,Front Wheeled Walker Orthotic/Prosthetic Devices or Brace: No Transfers Transfer Destination Chair Transfer Technique Ambulation Transfer Ability Level of Assist Contact Guard Assistance,1 Person Assistance,Use of Upper Extremities Comments Mobility Comments PT provides gait belt for pt to loop around foot and PT places around right foot and pt uses it to scoot right foot to the right off of EOB. Pt requires increased time and encouragement for bed mobility and to scoot out. PT pulls out bed handle and pt uses it to scoot forward and cues to push up from the bed and not from the walker. Antalgic and stiff mobility with right knee on eval. Gait Assessment Gait Gait Assistance Required: Contact Guard Assist Distance (Feet) 20 Able to Maintain Weight Bearing Status Yes During Gait Assistive Devices Assistive Device Gait Belt,Front Wheeled Walker Orthotic/Prosthetic Devices or Brace: No Gait Deviations General Gait Pattern Antalgic,Decreased Stride Length,Decreased Feet Clearance,Flexed Trunk,Step-to Gait Factors Limiting Gait Function Factors Limiting Gait Function Decreased Activity Tolerance, Decreased Strength,Limited Range of Motion,Pain,Poor Balance,Poor Safety Awareness PT-Balance Assessment Sitting Balance and Reactions Static Sitting Balance Ability Good Dynamic Sitting Balance Ability Good Standing Balance and Reactions Static Standing Balance Ability Fair Dynamic Standing Balance Ability Fair Device Used RW M5 PT-IP Objective Assessments Start: 05/24/24 08:22 Freq: NEEDED Status: Active Protocol: Document 05/24/24 08:30 MB (Rec: 05/24/24 09:46 MB [id number]) Orientation Orientation/Cognition Level of Alertness Alert Orientation Name,Age,Birthday,Month,Date, Year,Day of Week,Place, Situation Language Function Ability No Deficits Noted Safety Awareness Understands Safety Issues Memory Description No Deficits Noted Gross Range of Motion Upper Extremity ROM Impairments Defer to OT Lower Extremity ROM Assessment Right Impaired Impairments Right knee AROM supine 10-30 deg and passive flexion sitting EOB 80 deg Strength Lower Extremity Strength Assessment Right Impaired Comments Strength Comments Deferred MMT right LE d/t pain and mild edema M6 PT-IP Treatment Start: 05/24/24 08:22 Freq: NEEDED Status: Active Protocol: Document 05/24/24 08:30 MB (Rec: 05/24/24 09:46 MB [id number]) Physical Therapy Treatment Exercises Exercises Ankle Pumps,Quad Sets Education Education Provided Weight Bearing Status,Post-Op Packet,Safety Other Treatments Other Treatment Performed LAQ in sitting and pt cannot yet perform today M7 PT-IP Assessment and Plan Start: 05/24/24 08:22 Freq: NEEDED Status: Active Protocol: Document 05/24/24 08:30 MB (Rec: 05/24/24 09:46 MB [id number]) PT Summary Assessment and Plan Potential Rehabilitation Potential Good Status of Condition at Evaluation Evolving Summary Impairments Pain,ROM,Strength,Balance,Bed Mobility,Transfers,Gait, Activity Tolerance Progress Towards Goals Slow Progress due to Activity Tolerance Assessment Summary Pt is a 69 y/o male presenting with decreased right knee ROM in supine and high reports of pain when up today. He tolerates short gait on evaluation. His friend is coming to stay with esha at d/c . He has two steps and no rails to enter home and he will benefit from stair training before d/c as well as increasing gait distance. Pt has OPPT set-up next week. Goals Bed Mobility Goal Independent Transfer Goal Independent,Front Wheeled Walker Gait Goal Independent,Front Wheel Walker Gait Distance 100 Other Goals Pt will ascend and descend two steps with no rails and use of LRAD with no more than min A to allow safe home entrance. Days to Meet Goals 2 Frequency of Treatment Frequency Of Treatment Twice a Day Treatment Plan Physical Therapy Treatment Plan Bed Mobility Training,Transfer Training,Gait Training, Therapeutic Exercise,Balance Retraining,Post Op Education, Discharge Planning,Hot or Cold Pack,Neuromuscular Re-ed, Coordination Retraining,Manual Therapy Weight Bearing Status Weight Bearing Status Weight Bear as Tolerated Recommendations To Nursing Amount of Assist Needed 1 Person Assist Discharge Recommendations PT Discharge Recommendations Home with Assistance Transportation Needs at Discharge Private Vehicle
--- NOTE | 2024-05-24 11:01 | PM.DS.1 ---
History of Present Illness History of Present Illness Date Patient Seen: 05/24/24 Time Patient Seen: 11:02 Chief complaint: Knee pain Narrative: See progress note Discharge Providers Provider Discharge Date: 05/24/24 Primary care physician: Christa Martines DO Consults: 05/23/24 06:00 Consult to Anesthesiology Routine Comment: Consulting Provider: Anesthesiologist Reason for consultation: Regional block for post operative pain control 05/23/24 18:40 Consult to Discharge Planning Routine Comment: Consult to Occupational Therapy Evaluate & Treat Comment: Physician Instructions: Evaluate and treat Consult to Physical Therapy Evaluate & Treat Comment: Physician Instructions: postop TKA protocol Discharge provider: Yusuf Francis PA-C Summary Hospital Course Discharge Diagnosis: Right knee arthritis Hospital Course: Right total knee arthroplasty 50230 Robotic assisted surgery [id number] Computer navigation assisted surgery [id number] Same procedure as scheduled: Yes Indications: The patient is a 69-year-old male with end-stage oues-xe-jmaw knee arthritis. The patient has a significant right varus knee arthritis. They have failed conservative treatment with activity modifications, injections, physical therapy and bracing. They has been indicated for total knee replacement. The risks and benefits of the procedure have been discussed with the patient even opportunity to ask questions. The risks of surgery include but are not limited to infection, malunion, nonunion, fracture, loosening, persistence of pain, damage to nerves and blood vessels, need for additional procedures, DVT, PE, cardiopulmonary complications and . The patient expressed a thorough understanding of the risks and benefits of surgery and has elected to proceed. Consent was signed in the office. During the operation the services of physician surgical instruments inspector were medically indicated and necessary to provide the exposure of the operative site for the surgical procedure and to maintain the limb in a proper position to carry out the procedure safely and efficiently. Without a qualified chef's assistant being present this would extend the operative procedure and would have made the procedure more technically difficult to perform. The surgical instruments inspector was medically necessary for the proper positioning, retraction and manipulation of the limb, proper exposure, and manipulation of the tissue for implantation implants and closure. Surgeon: Nannette Barrientos Bullet Assembly Press Operator: Ricky Nunes Anesthesia Type: General, Peripheral nerve block and Local Operative Notes Findings: Varus knee arthritis Closure Type: primary Specimen(s): none sent Prosthetic devices, grafts, tissues, transplants, or devices: Morris and nephew journey 2 bcs Femur cobalt chromium 6 Tibia 5 Poly 11mm Patella 35x 7.5 Estimated Blood Loss (mL): 100 Blood products transfused: none Tourniquet time (min): 98 Patient admitted to the hospital for the above-mentioned procedure. Patient consented to the same. Patient underwent right total knee arthroplasty May 23, 2024. Patient back in his room recovering well as in stable condition. Mobilize with physical therapy. Weightbearing as tolerated. Standard total knee postop protocol. Aspirin 81 mg x 6 weeks for DVT prophylaxis. Follow up outpatient orthopedic clinic in 2 weeks. Patient will be discharged home today in stable condition. Exam Vital Signs (past 8 hours): - 05/24/24 09:31 05/24/24 09:31 Pulse Rate 84 84 Blood Pressure 130/72 130/72 Oxygen Delivery Method Room Air Oxygen Flow Rate 0 Narrative Exam Narrative: See progress note Objective Labs 05/24/24 04:18 Labs: Laboratory Results - last 24 hr 05/24/24 04:18 Hgb 11.8 L Hct 35.0 L PFSH Medical History BCC (basal cell carcinoma) History of left heart catheterization (09/2022) CAD (coronary artery disease) Encounter for subsequent annual wellness visit (AWV) in Medicare patient Benign essential HTN STEMI (ST elevation myocardial infarction) (09/2022) Prediabetes (02/2021) Former smoker Mixed hyperlipidemia (08/2019) Gout (~1979) Asthma (~2011) Surgical History History of atherectomy (09/2022) Hx of heart artery stent (09/2022) Anesthesia History of sinus surgery (~11/22/13) Family History Father History of heart disease Mother Cancer Social History household members: none Smoking Status: Former smoker Tobacco: How many years used: 20 second hand exposure: No alcohol intake: current substance use type: does not use Discharge Assessment & Plan Assessment and Plan Assessment: Patient progressing as expected Plan of Treatment: Weightbearing as tolerated, standard postop total knee replacement protocol Multimodal pain management Aspirin 81 mg b.i.d. x6 weeks Follow up outpatient orthopedic clinic in 2 weeks Discharge home today in stable condition Discharge Plan Discharge Plan Patient Disposition: Home Discharge orders & Medications Discharge Orders: Discharge (Order); Ordered 05/24/24 Ordered By: Yusuf Francis Prescriptions: Continued aspirin 81 mg tablet,chewable 81 mg PO DAILY magnesium oxide 400 mg magnesium tablet 400 mg PO DAILY cholecalciferol (vitamin D3) [D3-5000] 125 mcg (5,000 unit) capsule 125 mcg PO DAILY itmdbddnxrpt-ahfjgfdo-emkijq Tablet 1 tab PO DAILY omega-3 fatty acids Capsule 1,250 mg PO DAILY metoprolol succinate 50 mg tablet extended release 24 hr 50 mg PO DAILY losartan 25 mg tablet 25 mg PO DAILY Qty: 90 3RF rosuvastatin 20 mg tablet See Rx Instructions .ROUTE .COMPLEX Qty: 90 3RF Dose Instruction: TAKE 1 TABLET BY MOUTH EVERY MORNING Rx Instructions: TAKE 1 TABLET BY MOUTH EVERY MORNING meloxicam 15 mg tablet 15 mg PO DAILY PRN (Reason: Knee pain) nitroglycerin 0.4 mg tablet, sublingual See Rx Instructions .ROUTE .COMPLEX PRN (Reason: Chest Pain) Rx Instructions: PUT 1 TAB UNDER THE TONGUE FOR CHEST PAIN, REPEAT EVERY 5 MIN, IF PAIN PERSISTS AFTER 2 TABS CALL 911 colchicine 0.6 mg tablet 0.6 mg PO DAILY PRN (Reason: Gout Flare) Rx Instructions: Take one tab by mouth daily for 5 days until gout flair resolves. Follow up/Referrals: Nannette Barrientos MD [Physician] - (As scheduled ) Christa Martines DO [Primary Care Provider] - Diet/Activity/Treatments Diet: Diet as Tolerated Other treatments: Dressing/Wound care: -Remove the José Luis wrap 48 hours after surgery. -Keep Aquacell dressing in place until postoperative follow-up office visit. -you may see some drainage on the bandage, this is ok. If it is leaking or saturated, then the dressing can be changed to clean gauze or a clean surgical dressing from a pharmacy or reinforced with additional gauze and paper tape or dressings over the top. Otherwise, just keep dressing in place until follow up. -Okay to shower. Keep wound out of direct water stream. No soaking or submerging until all the scabs fall off (approximately 6 weeks). -Please call the office if dressing becomes significantly wet, soiled, or saturated. Activities: -Weight-bearing as tolerated. Use front wheeled walker, and progress to cane when safe. -Continue with home exercises as directed by your physical therapist. -Elevate ?toes above the nose if you have significant swelling in your lower leg. (A wedge pillow is easiest.) -Ice your incision as needed for pain/inflammation/swelling. Protect your skin with a folded pillowcase. Follow-up: -Follow-up with your surgeon or PA in the office in 10-14 days after surgery. -Follow-up with your surgeon 6 weeks postoperatively. Call the office if you have chest pain, shortness of breath, significant swelling that will not resolve with elevating, fever over 101?, significantly worsening pain. [facility]: [phone] You have been discharged with medications. These have already been sent to your pharmacy. Pain include pain medications: Oxycodone take 5 mg orally every 4 hours as needed for pain. If your pain is more severe you may take up to 2 or a maximum 3 pills (15 mg) every 4 hours for pain. Take the smallest dose necessary. Narcotic medication can make you feel constipated. You can get dbbj-ufd-zbrmrra stool softener such as docusate sodium-Colace at a pharmacy to help with this. You also have prescriptions for ibuprofen 800 mg take this 3 times a day for least the 1st 10 days after surgery to help with pain control. And acetaminophen (Tylenol) take 500-1000 mg 3 times a day for pain control. You also have a prescription for Zofran (ondansetron) this is a strong anti nausea medication that can be taken up to every 8 hours as needed for nausea Additionally will take a baby aspirin 81 mg twice a day (morning and night) to help prevent blood clots If you have been discharged with ketorolac (toradol) this is a strong anti-inflammatory, do not take ibuprofen/meloxicam/mortin or other NSAIDS while on ketorolac. Once your ketorolac prescription is finished, you may restart taking other NSAIDs again. narcotic pain medication, tylenol and aspirin are fine to continue while on ketorolac. Skin/Wound/Dressing Care Report to your healthcare provider any signs of infection, such as:: chills, fever, night sweats, increased pain, unusual drainage and unusual redness Visit Report/Discharge Packet Instructions: SILVINO for Knee Replacement, DI for Prescription Opioid Use Stand Alone Forms: Patient Portal/API, Surgery Discharge Discharge Data Primary Care Provider: Christa Martines Attending Provider: Nannette Barrientos VTE Deep Vein Thrombosis/Pulmonary Embolism Present on Admission: No
--- NOTE | 2024-05-24 11:50 | OT.IP.EVAL ---
Current Diagnoses Unilateral primary osteoarthritis, right knee (05/23/24) Surgery Performed Operation Date: 05/23/24 13:15 Actual Procedures p Total Knee Arthroplasty - Robot(Right) - Nannette Barrientos MD Past Medical History (Last Reviewed 05/24/24 @ 11:04 by Yusuf Francis PA-C) Asthma (~2011) BCC (basal cell carcinoma) Benign essential HTN CAD (coronary artery disease) Encounter for subsequent annual wellness visit (AWV) in Medicare patient Former smoker Gout (~1979) History of left heart catheterization (09/2022) Mixed hyperlipidemia (08/2019) Prediabetes (02/2021) STEMI (ST elevation myocardial infarction) (09/2022) Surgical History (Last Reviewed 05/24/24 @ 11:04 by Yusuf Francis PA-C) Anesthesia History of atherectomy (09/2022) History of sinus surgery (~11/22/13) Hx of heart artery stent (09/2022) Occupational Therapy Inpatient Evaluation/Re-Eval M1 PT/OT-IP Prior Functional Status Start: 05/24/24 08:22 Freq: NEEDED Status: Active Protocol: Document 05/24/24 12:42 CGR (Rec: 05/24/24 12:56 CGR [id number]) Medical Review Prior Functional Status Medical History Reviewed Yes Diet/Fluid Consistency Regular Communication Pt is an effective verbal communicator. Mobility and Gait Ind without AD Activities of Daily Living and IADL's Ind at baseline without AD. 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 Social History Household Members none Living Arrangements House Number of Floors (Floors) One Floor Number of Stairs To Enter/Railing? 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 He has a flat bed. M2 OT-IP Current Condition Start: 05/24/24 12:42 Freq: Status: Active Protocol: Document 05/24/24 12:42 CGR (Rec: 05/24/24 12:56 CGR [id number]) Occupational Therapy Current Condition Current Condition Evaluation Date 05/24/24 Treatment Diagnosis R TKA Diagnosis Onset Date 05/23/24 Weight Bearing Status Weight Bearing Status Weight Bear as Tolerated M3 OT- IP Subjective and Pain Start: 05/24/24 12:42 Freq: Status: Active Protocol: Document 05/24/24 12:42 CGR (Rec: 05/24/24 12:56 CGR [id number]) OT- Subjective Occupational Therapy Visit Type Type Initial Evaluation Visit Start Time 11:06 Visit Stop Time 11:50 Notes Pt is planned for discharge home today. OT Pain Assessment Pain When Pain Assessed During Mobility Pain Present Pain Present Pain Reported Location Right Knee Intensity 6 Scale Used Numeric (0 - 10) Pain Behaviors Facial Grimacing,Guarding Management Techniques Apply Cold,Distraction, Modification of Treatment,Re- positioning,Timing of Activity with Medications M4 OT- IP ADL's Start: 05/24/24 12:42 Freq: Status: Active Protocol: Document 05/24/24 12:42 CGR (Rec: 05/24/24 12:56 CGR [id number]) OT [id number] Comments OT Self-Feeding Comments Not meal time OT ADL-Grooming General Evaluation Grooming Ability Standby Assistance Comments OT Grooming Comments Pt washed hands standing at sink after toileting. OT ADL-Oral Care Comments Oral Care Comments Pt declined OT ADL-Dressing Comments OT Dressing Comments Educated pt on use of DME for LB dressing and demonstrated LB using DME for pt but pt declined to perform/practice at this time. OT ADL-Toileting General Evaluation Toileting Ability Independent Comments OT Toileting Comments urination standing at toilet OT ADL-Bathing Comments OT Bathing Comments not performed but discussed home safety and use of built in shower seat. M5 OT- IP IADL's Start: 05/24/24 12:42 Freq: Status: Active Protocol: Document 05/24/24 12:42 CGR (Rec: 05/24/24 12:56 CGR [id number]) OT-Instrumental Activities of Daily Living Deficits IADL Deficits Identified No Deficits Home Safety Awareness Awareness of Need for Assistance at Home Good Awareness Ability to Problem Solve Emergency Able to Problem Solve Situations Medication Management Medication Management No Deficits Identified Money Management Money Management No Deficits Identified Meal Preparation Meal Preparation No Deficits Identified Rn Nicu Rn Nicu No Deficits Identified Driving Driving Comments 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 M6 OT- IP Functional Cognition Start: 05/24/24 12:42 Freq: Status: Active Protocol: Document 05/24/24 12:42 CGR (Rec: 05/24/24 12:56 CGR [id number]) Cognitive Factors Limiting Selfcare Function Cognitive Ability Level of Alertness Alert Patient Orientation Name,Age,Birthday,Month,Date, Year,Day of Week,Place, Situation Attention Span Ability Capable of Focused Attention, Capable of Sustained Attention Ability to Follow Commands Able to Follow Multi-Step Commands OT- Vision and Hearing OT- Hearing Assessment OT- Hearing Assessment WFL OT- Vision Assessment Visual Acuity Glasses For Reading Visual Attentiveness WFL Occular Pursuits WFL Visual Convergence WFL Vision Assessment Comments Pt wears readers and has bifocals for the computer. M7 OT- IP Mobility and Balance Start: 05/24/24 12:42 Freq: Status: Active Protocol: Document 05/24/24 12:42 CGR (Rec: 05/24/24 12:56 CGR [id number]) OT-Transfer Assessment Sit to and From Stand Sit to and from Stand Standby Assistance Transfers Transfer Ability Standby Assistance Technique Transfer Destination Chair Transfer Technique Stand Step Pivot Devices Transfer Assistive Devices Gait Belt,Front Wheeled Walker Comments Mobility Comments Mobility from the chair to the toilet for urination standing then to the sink and return to the chair. OT- Gait Assessment Gait Gait Assistance Required: Standby Assistance Assistive Devices Assistive Device Gait Belt,Front Wheeled Walker Comments Gait Ability Comments mobility around the room OT- Balance Assessment Sitting Balance and Reactions Static Sitting Balance Ability Good Dynamic Sitting Balance Ability Good M8 OT- IP Objective Assessments Start: 05/24/24 12:42 Freq: Status: Active Protocol: Document 05/24/24 12:42 CGR (Rec: 05/24/24 12:56 CGR [id number]) OT Gross Range of Motion Upper Extremity Range of Motion Assessment Within Functional Limits OT Strength Upper Extremity Strength Assessment Within Functional Limits Comments Strength Comments 5/5 except R shld 4-/5, pt states an injust ~8 years ago. OT- Coordination Assessment Upper Extremity Finger to Nose Test Within Functional Limits Finger Tapping Test Within Functional Limits OT-Muscle Tone Assessment Muscle Tone WNL Yes OT Sensation Assessment Edema Edema Absent M9 OT- IP Assessment and Plan Start: 05/24/24 12:42 Freq: Status: Active Protocol: Document 05/24/24 12:42 CGR (Rec: 05/24/24 12:56 CGR [id number]) OT Summary Assessment and Plan Potential Rehabilitation Potential Good Analytic Complexity at Evaluation Moderate Summary OT Impairments Pain,Range of Motion,Balance, Functional Mobility,Grooming, Dressing,Toileting,Bathing, Toilet Transfers,Shower Transfers,Activity Tolerance Progress Towards Goals Progressing Toward Goals Assessment Summary Pt presents as a moderate complexity evaluation s/p admit for R TKA. Pt is doing well and ambulating with SBA with a 2WW, however, he is limited in endurance likely from pain. Pt declined to perform LB dressing when educated on DME for LB dressing but states he is sure that he will be able to perform with DME at home. Pt states that his friends will help as needed. Recommend home with home health. Goals Grooming Goal Independent Dressing Goal Independent Toileting Goal Independent Bathing Goal Independent Toilet Transfer Goal Independent Shower Transfer Goal Independent Days to Meet Goals 5 Frequency of Treatment Frequency Of Treatment Once a Day Treatment Plan OT Treatment Plan ADL Training,Functional Mobility,Patient/Family Education,Discharge Planning Other Treatment Recommendations and Next LB dressing and shower Treatment Focus Discharge Recommendations OT Discharge Recommendations Home Health Transportation Needs at Discharge Private Vehicle
--- NOTE | 2024-05-24 13:15 | PT.IPTN ---
Current Diagnoses Unilateral primary osteoarthritis, right knee (05/23/24) Surgery Performed Operation Date: 05/23/24 13:15 Actual Procedures p Total Knee Arthroplasty - Robot(Right) - Nannette Barrientos MD Physical Therapy Treatment Note M2 PT-IP Current Condition Start: 05/24/24 08:22 Freq: NEEDED Status: Active Protocol: Document 05/24/24 08:30 MB (Rec: 05/24/24 09:46 MB [id number]) Physical Therapy Current Condition Current Condition Evaluation Date 05/24/24 Treatment Diagnosis R TKR M3 PT-IP Subjective Start: 05/24/24 08:22 Freq: NEEDED Status: Active Protocol: Document 05/24/24 13:47 TS (Rec: 05/24/24 14:06 TS [id number]) Subjective Physical Therapy Visit Type Type Treatment Note Visit Start Time 13:15 Visit Stop Time 13:45 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 He reports having 2 friends to help him up his one step into house. Therapy Pain Assessment Pain When Pain Assessed During Mobility Pain Present Pain Present Pain Reported M4 PT-IP Mobility and Gait Start: 05/24/24 08:22 Freq: NEEDED Status: Active Protocol: Document 05/24/24 13:47 TS (Rec: 05/24/24 14:06 TS [id number]) PT-Transfer Assessment Sit to and From Stand Sit to and from Stand Contact Guard Assistance,1 Person Assistance,Use of Upper Extremities Equipment Transfer Assistive Device Gait Belt,Front Wheeled Walker Orthotic/Prosthetic Devices or Brace: No Comments Mobility Comments Pt performed STS with FWW CGA, he demonstrates good carryover of STS sequencing. He ambulated in room ~30'SBA with slow step to gait, he is heavy handed on FWW. He performed stairs x2 on platform step with [place] and SPC ModA. He ambulated back to chair, all needs met, RN notified. Gait Assessment Gait Gait Assistance Required: Standby Assistance Distance (Feet) 30 Able to Maintain Weight Bearing Status Yes During Gait Assistive Devices Assistive Device Gait Belt,Front Wheeled Walker Orthotic/Prosthetic Devices or Brace: No Gait Deviations General Gait Pattern Antalgic,Decreased Stride Length,Decreased Feet Clearance,Flexed Trunk,Step-to Gait Factors Limiting Gait Function Factors Limiting Gait Function Decreased Activity Tolerance, Decreased Strength,Limited Range of Motion,Pain,Poor Balance,Poor Safety Awareness Comments Gait Comments mobility around the room Stair Climbing Assessment Evaluation Level of Assist On Stairs Moderate Assistance,1 Person Assistance Devices Stair Climbing Assistive Devices Straight Cane,Left Railing Technique/Endurance Stair Climbing Direction Ascend and Descend Stair Climbing Technique Step to Step Number of Steps Climbed 2 Comments Stair Climbing Comments See mobility comments PT-Balance Assessment Sitting Balance and Reactions Static Sitting Balance Ability Good Dynamic Sitting Balance Ability Good Standing Balance and Reactions Static Standing Balance Ability Fair Dynamic Standing Balance Ability Fair Device Used RW M5 PT-IP Objective Assessments Start: 05/24/24 08:22 Freq: NEEDED Status: Active Protocol: Document 05/24/24 08:30 MB (Rec: 05/24/24 09:46 MB [id number]) Orientation Orientation/Cognition Level of Alertness Alert Orientation Name,Age,Birthday,Month,Date, Year,Day of Week,Place, Situation Language Function Ability No Deficits Noted Safety Awareness Understands Safety Issues Memory Description No Deficits Noted Gross Range of Motion Upper Extremity ROM Impairments Defer to OT Lower Extremity ROM Assessment Right Impaired Impairments Right knee AROM supine 10-30 deg and passive flexion sitting EOB 80 deg Strength Lower Extremity Strength Assessment Right Impaired Comments Strength Comments Deferred MMT right LE d/t pain and mild edema M6 PT-IP Treatment Start: 05/24/24 08:22 Freq: NEEDED Status: Active Protocol: Document 05/24/24 13:47 TS (Rec: 05/24/24 14:06 [id number]) Physical Therapy Treatment Education Education Provided Weight Bearing Status,Post-Op Packet,Safety M7 PT-IP Assessment and Plan Start: 05/24/24 08:22 Freq: NEEDED Status: Active Protocol: Document 05/24/24 13:47 TS (Rec: 05/24/24 14:06 [id number]) PT Summary Assessment and Plan Potential Rehabilitation Potential Good Summary Impairments Pain,ROM,Strength,Balance,Bed Mobility,Transfers,Gait, Activity Tolerance Progress Towards Goals Progressing Toward Goals Assessment Summary Pawel is making some progress with his mobility. He is CGA for STS with FWW. He progressed his gait to ~30'SBA with use of FWW. He performed steps x2 with ModA and SPC with [place], had no buckling or LOB. He has 2 friends to get him into the house and they will be assisting him at home. PT is recommending home with 24/7 assist and outpatient PT. Goals Bed Mobility Goal Independent Transfer Goal Independent,Front Wheeled Walker Gait Goal Independent,Front Wheel Walker Gait Distance 100 Other Goals Pt will ascend and descend two steps with no rails and use of LRAD with no more than min A to allow safe home entrance. Days to Meet Goals 2 Frequency of Treatment Frequency Of Treatment Twice a Day Treatment Plan Physical Therapy Treatment Plan Bed Mobility Training,Transfer Training,Gait Training, Therapeutic Exercise,Balance Retraining,Post Op Education, Discharge Planning,Hot or Cold Pack,Neuromuscular Re-ed, Coordination Retraining,Manual Therapy Weight Bearing Status Weight Bearing Status Weight Bear as Tolerated Recommendations To Nursing Amount of Assist Needed 1 Person Assist Discharge Recommendations PT Discharge Recommendations Home with 24/7 Assist Available,Outpatient PT Transportation Needs at Discharge Private Vehicle
== END 2024-05-24 14:20 | disposition home or self-care (01) ==
LOC: OR 14:34 → AC 18:18
PROVIDERS: PCP Family Medicine; Referring Provider Orthopaedic Surgery Foot and Ankle Surgery; Visit Provider Orthopaedic Surgery Foot and Ankle Surgery
PROC: 0SRC0JZ Replacement of Right Knee Joint with Synthetic Substitute, Open Approach (ICD-10-PCS; CPT 27447; principal; 2024-05-23 13:15)
DX: M17.11 Unilateral primary osteoarthritis, right knee (principal); G89.18 Other acute postprocedural pain; M25.761 Osteophyte, right knee
CPT/HCPCS: 27447; 36415; 64450; 73560; 85014; 85018; 97116; 97161; 97166; 97530; 97535; C1776; A9270; C9290; J0171; J0330; J0690; J1170; J2405; J2704; J3010

== ENCOUNTER → 2024-06-25 15:07 | Outpatient (CLI) | payer MEDICARE, OTHER, SELFPAY ==
[2024-06-25 15:52] LABS: Hemoglobin A1C% w Est Avg Glu 5.7 % (4.0-6.0)
== END ==
PROVIDERS: PCP Family Medicine; Referring Provider Family Medicine; Visit Provider Family Medicine
DX: R73.03 Prediabetes (principal); E78.2 Mixed hyperlipidemia
CPT/HCPCS: 36415; 83036

== ENCOUNTER → 2024-12-04 11:58 | Outpatient (CLI) | payer MEDICARE, OTHER, SELFPAY ==
--- NOTE | 2024-12-04 12:00 | DI.US.S_ITS ---
PROCEDURE: US CAROTID DOPPLER BI INDICATIONS: left carotid bruit TECHNIQUE: Color and pulse Doppler interrogation was performed of both carotid systems, with image documentation and velocity measurements. COMPARISON: None. FINDINGS: Stenosis calculations are based on SRU (Society of Radiologists in Ultrasound) criteria. The flow velocities and the arterial waveforms are normal within both carotid arterial systems. Atherosclerotic plaque is seen on both sides. The estimated degree of internal carotid artery stenosis is less than 50%. Antegrade flow is confirmed within both vertebral arteries. This examination is limited by involuntary motion artifact. IMPRESSION: No hemodynamically significant stenosis is seen. Atherosclerotic plaque is noted bilaterally. Dictated by: Josh Arriola M.D. on 12/04/2024 at 13:48 Approved by: Josh Arriola M.D. on 12/04/2024 at 13:49
== END ==
LOC: US 12:00
PROVIDERS: PCP Family Medicine; Referring Provider Internal Medicine Cardiovascular Disease; Visit Provider Internal Medicine Cardiovascular Disease
DX: R09.89 Other specified symptoms and signs involving the circulatory and respiratory systems (principal); I65.23 Occlusion and stenosis of bilateral carotid arteries
CPT/HCPCS: 93880

== ENCOUNTER → 2024-12-29 10:25 | Outpatient (CLI) | payer MEDICARE, OTHER, SELFPAY ==
[2024-12-29 12:22] LABS: Hematocrit 39.3 % (41-53); Hemoglobin 13.3 g/dL (13.5-17.5); Mean Corpuscular HGB Conc 33.9 % (30-36); Mean Corpuscular Hemoglobin 30.6 PG (26-34); Mean Corpuscular Volume 90.5 fL (80-100); Platelet Count 179 X10^3/uL (150-400); Red Blood Cell Count 4.35 X10^6/uL (4.5-5.9); Red Cell Distribution Width 13.9 % (11.6-14.8)
[2024-12-29 13:02] LABS: Alanine Aminotransferase 40 IU/L (<50); Albumin 4.5 g/dL (3.5-5.0); Albumin Globulin Ratio 1.8 (1.0-2.8); Alkaline Phosphatase 74 U/L (38-126); Aspartate Aminotransferase 33 IU/L (17-59); BUN Creatinine Ratio 18.3 (6-22); Bilirubin Total 0.6 mg/dL (0.2-1.3); Blood Urea Nitrogen 20 mg/dL (9-20); Calcium 9.3 mg/dL (8.4-10.2); Carbon Dioxide 23 mmol/L (22-32); Chloride 104 mmol/L (98-107); Cholesterol 102 mg/dL (140-199); Estimated Glomerular Filt Rate > 60 mL/min (>60); Globulin 2.5 g/dL (1.7-4.1); Glucose 117 mg/dL (80-110); HDL Cholesterol 45 mg/dL (40-60); HEMOLYSIS < 15 (0-50); LDL Cholesterol Calculated 41 mg/dL (<100); Potassium 4.9 mmol/L (3.4-5.1); Sodium 140 mmol/L (137-145); Triglycerides 82 mg/dL (35-150)
[2024-12-29 16:45] LABS: Hemoglobin A1C% w Est Avg Glu 5.8 % (4.0-6.0)
[2024-12-31 17:08] LABS: Fecal Immunochemical Test Negative (Negative)
== END ==
LOC: LAB 10:27
PROVIDERS: PCP Family Medicine; Referring Provider Family Medicine; Visit Provider Family Medicine
DX: Z00.00 Encounter for general adult medical examination without abnormal findings (principal); I25.10 Atherosclerotic heart disease of native coronary artery without angina pectoris; R73.03 Prediabetes; Z12.11 Encounter for screening for malignant neoplasm of colon; I10 Essential (primary) hypertension
CPT/HCPCS: 36415; 80053; 80061; 82274; 83036; 85027

== ENCOUNTER → 2025-04-03 12:38 | Outpatient (CLI) | payer MEDICARE, OTHER, SELFPAY ==
--- NOTE | 2025-04-03 12:39 | DI.ECHO.S_ITS ---
[facility]+ [facility] : : [id number] : [place] : : [id number] : : Phone: [phone] Echocardiogram Report + + :Name: WALLY BAUTISTA Study Date: 04/03/2025 Height: 68 in : :Hospital ReadingLocation: Weight: 245 lb : : Gender: Male BSA: 2.2 m2 : :: 1955 Age: 70 yrs BP: 116/77 mmHg: :Reason For Study: AORTIC VALVE STENOSIS : :Ordering Physician: GIUSEPPE, : :NATASHA Performed By: Latanya Barcenas : :Referring: NATASHA CHIN : + + Interpretation Summary The left ventricle is normal in size. The ejection fraction is estimated to be 55-60%. Mid inferior lateral wall hypokinesis. Previously basal mid inferolateral. Previous LV ejection fraction 50 to 55%. The right ventricle is grossly normal size. The right ventricular systolic function is normal. The aortic valve is heavily calcified. There is moderately reduced leaflet mobility. The peak aortic velocity is 3.4 m/sec. The aortic valve mean gradient is 27 mmHg. The peak aortic velocity on the previous exam was 3.1 m/sec. The calculated aortic valve area is 1.1 cm2. sev ratio: 0.28 There is moderate aortic stenosis. The IVC is of normal diameter and collapses greater than 50% with a sniff. This suggests a low right atrial pressure of 3 mm Hg. Procedure: A two-dimensional transthoracic echocardiogram with color flow and Doppler was performed. The study quality was technically adequate. Comparison is made with the echocardiogram of 12/15/2023. The heart rate ranged between 58-67 bpm during the study. The patient was in normal sinus rhythm during the exam. Left Ventricle: The left ventricle is normal in size. Left ventricular wall thickness is mildly increased. There is no thrombus. The ejection fraction is estimated to be 55-60%. Mid inferior lateral wall hypokinesis. Previously basal mid inferolateral. Previous LV ejection fraction 50 to 55%. Diastolic parameters suggest a relaxation abnormality of the left ventricle, consistent with probable normal filling pressures. Right Ventricle: The right ventricle is grossly normal size. The right ventricular systolic function is normal. Atria: The left atrial size is normal. There has been no significant change since the previous study. Right atrial size is normal. There is no Doppler evidence for an interatrial shunt. Mitral Valve: The mitral valve leaflets appear mildly thickened, but open well. There is mild mitral annular calcification. There is trace mitral regurgitation. Aortic Valve: The aortic valve is heavily calcified. There is moderately reduced leaflet mobility. There is moderate aortic stenosis. The peak aortic velocity is 3.4 m/sec. The peak aortic velocity on the previous exam was 3.1 m/sec. The aortic valve mean gradient is 27 mmHg. The calculated aortic valve area is 1.1 cm2. There is trace aortic regurgitation. Tricuspid Valve: The tricuspid valve is not well visualized, but is grossly normal. No tricuspid regurgitation. Pulmonary artery pressures cannot be estimated because of the lack of a measurable TR jet velocity. Pulmonic Valve: The pulmonic valve is not well seen, but is grossly normal. Great Vessels: The aortic root is normal size. The ascending aorta is normal in size. The IVC is of normal diameter and collapses greater than 50% with a sniff. This suggests a low right atrial pressure of 3 mm Hg. Pericardium/ Pleura There is no pericardial effusion. There is no pleural effusion. MMode/2D Measurements & Calculations LVIDd: 4.3 cm LVOT diam: 2.3 cm LVIDs: 2.9 cm Ao root diam: 3.3 cm FS: 32.5 % asc Aorta Diam: 3.5 cm EPSS: 1.1 cm Ao Arch Diam (Prox Trans): 3.0 cm IVSd: 0.98 cm LVPWd: 1.0 cm LV nunez. diameter/BSA (cm/m^2): 1.9 LV sys. diameter/BSA (cm/m^2): 1.3 LA A2 area: 21.6 cm2 RA long axis: 5.3 cm LA A4 area: 16.1 cm2 RA area: 17.5 cm2 LA length (vol): 4.8 cm RA vol: 49.4 ml LA vol: 61.0 ml RA : 22.2 ml/m2 LA vol index: 27.4 ml/m2 IVC diam: 1.9 cm RVD1 (basal): 3.9 cm TAPSE: 1.8 cm Doppler Measurements & Calculations Ao V2 max: 341.2 cm/sec LVOT Max Silvestre: 92.1 cm/sec Ao V2 mean: 243.7 cm/sec LV V1 max P.4 mmHg Ao max P.9 mmHg LV V1 VTI: 20.6 cm Ao mean P.0 mmHg KATHLEEN(I,D): 1.1 cm2 Ao V2 VTI: 73.7 cm KATHLEEN(V,D): 1.1 cm2 sev ratio: 0.28 KATHLEEN indexed to BSA (cm^2/m^2): 0.52 MV E max silvestre: 48.0 cm/sec PA V2 max: 86.0 cm/sec MV A max silvestre: 59.6 cm/sec PA V2 mean: 56.0 cm/sec MV E/A: 0.81 PA mean P.5 mmHg Med Peak E' Silvestre: 7.0 cm/sec PA pr(Accel): 14.8 mmHg E/E' med: 6.9 Lat Peak E' Silvestre: 9.0 cm/sec E/E' lat: 5.3 E/e' average: 6.1 MV dec time: 0.36 sec SV(LVOT): 84.8 ml Reading Physician:12:44 PM
== END ==
PROVIDERS: PCP Family Medicine; Referring Provider Internal Medicine Cardiovascular Disease; Visit Provider Internal Medicine Cardiovascular Disease
DX: I34.81 Nonrheumatic mitral (valve) annulus calcification (principal); I35.0 Nonrheumatic aortic (valve) stenosis; R09.89 Other specified symptoms and signs involving the circulatory and respiratory systems
CPT/HCPCS: 93306

== ENCOUNTER → 2025-06-06 19:43 | Outpatient (CLI) | payer MEDICARE, OTHER, SELFPAY ==
--- NOTE | 2025-06-06 19:45 | DI.MRI.S_ITS ---
PROCEDURE: MR CERVICAL SPINE WO CON INDICATIONS: Radiculopathy TECHNIQUE: Noncontrast sagittal T1 spin echo and T2 fast spin echo, sagittal STIR, foraminal oblique sagittal T2 fast spin echo, and axial gradient echo or T2 fast spin echo through the cervical spine. COMPARISON: None. FINDINGS: Image quality: Excellent. Alignment and Curvature: Mild grade 1 anterolisthesis of C3 on C4 and C4 on C5 and grade 1 anterolisthesis of C5 on C6. Bone Marrow: Marrow demonstrates normal overall signal. Spinal Cord: Visualized spinal cord has normal size and signal. No cerebellar tonsillar herniation. Paraspinous Soft Tissues: No paravertebral masses. Prevertebral soft tissues are normal in thickness. C2-C3: Disc desiccation and mild bilateral uncovertebral joint and facet hypertrophy. No significant spinal canal stenosis or neural foraminal narrowing. C3-C4: Disc desiccation and posterior disc-osteophyte complex as well as bilateral uncovertebral joint and facet hypertrophy. Findings result in moderate bilateral neural foraminal narrowing without significant spinal canal stenosis. C4-C5: Disc desiccation and posterior disc-osteophyte complex as well as bilateral uncovertebral joint and facet hypertrophy. Findings result in mild narrowing of the spinal canal with effacement of the ventral CSF space as well as moderate to severe left and moderate right neural foraminal narrowing. C5-C6: Disc desiccation and posterior disc-osteophyte complex as well as bilateral uncovertebral joint and facet hypertrophy. Findings result in moderate narrowing of the spinal canal with effacement of the ventral and dorsal CSF spaces and mild flattening of the right ventral aspect of the cord without abnormal cord signal. There is severe bilateral neural foraminal narrowing. C6-C7: Disc desiccation and posterior disc-osteophyte complex as well as bilateral uncovertebral joint and facet hypertrophy. Findings result in mild narrowing of the spinal canal as well as mild left and moderate to severe right neural foraminal narrowing. C7-T1: Disc desiccation and bilateral uncovertebral joint and facet hypertrophy. Findings result in mild left and moderate to severe right neural foraminal narrowing without significant spinal canal stenosis. IMPRESSION: 1. Multilevel degenerative disc disease, uncovertebral joint hypertrophy, and facet hypertrophy as described in the body of the report. 2. Moderate narrowing of the spinal canal at the C5-6 level. 3. High-grade neural foraminal narrowing at the C4-5 level on the left, the C5-6 level bilaterally, and the C6-7 and C7-T1 levels on the right. Approved by: Ramon Al M.D. on 06/08/2025 at 16:02
== END ==
LOC: MRI 19:44
PROVIDERS: Family Provider Family Medicine; PCP Family Medicine; Referring Provider Orthopaedic Surgery; Visit Provider Orthopaedic Surgery
DX: M50.11 Cervical disc disorder with radiculopathy, high cervical region (principal); M48.02 Spinal stenosis, cervical region; M47.22 Other spondylosis with radiculopathy, cervical region
CPT/HCPCS: 72141

== ENCOUNTER → 2025-06-18 14:13 | Outpatient (CLI) | payer MEDICARE, OTHER, SELFPAY ==
[2025-06-18 16:36] LABS: Hemoglobin A1C% w Est Avg Glu 6.3 % (4.0-6.0)
[2025-06-18 16:52] LABS: Blood Urea Nitrogen 28 mg/dL (9-20); Calcium 9.1 mg/dL (8.4-10.2); Carbon Dioxide 27 mmol/L (22-32); Chloride 105 mmol/L (98-107); Estimated Glomerular Filt Rate > 60 mL/min (>60); Glucose 116 mg/dL (70-99); HEMOLYSIS < 15 (0-50); Potassium 4.2 mmol/L (3.4-5.1); Sodium 142 mmol/L (137-145)
== END ==
PROVIDERS: Family Provider Family Medicine; PCP Family Medicine; Referring Provider Family Medicine; Visit Provider Family Medicine
DX: R73.03 Prediabetes (principal); I10 Essential (primary) hypertension; I25.118 Atherosclerotic heart disease of native coronary artery with other forms of angina pectoris
CPT/HCPCS: 36415; 80048; 83036

== ENCOUNTER → 2025-10-26 10:57 | Outpatient (CLI) | payer MEDICARE, OTHER, SELFPAY ==
[2025-10-26 12:30] LABS: Hemoglobin A1C% w Est Avg Glu 6.0 % (4.0-6.0)
== END ==
PROVIDERS: Family Provider Family Medicine; PCP Family Medicine; Referring Provider Family Medicine; Visit Provider Family Medicine
DX: R73.03 Prediabetes (principal); R73.09 Other abnormal glucose
CPT/HCPCS: 36415; 83036